=== PATIENT | female | born 1990 | race Caucasian/White ===

== ENCOUNTER 2023-06-28 11:13 | Outpatient (RCR) | payer OTHER, SELFPAY ==
[2023-06-28 13:20] LABS: Hematocrit 36.9 % (37.0-47.0); Hemoglobin 11.8 g/dL (12.0-15.0)
[2023-06-28 13:35] LABS: Glucose 1 Hour PP 50gm Dose 149 mg/dL
[2023-06-28 14:15] LABS: HIV 1/2 Ab P24 Ag Result Negative (Negative)
[2023-06-29] MEDS: RHO(D) IMMUNE GLOBULIN 300 MCG/2 ML SYRINGE IM (14:57)
== END 2023-09-26 23:59 | disposition home or self-care (01) ==
LOC: ANHLAB 11:13
PROVIDERS: PCP Internal Medicine Geriatric Medicine; Visit Provider Advanced Practice Midwife
DX: Z11.4 Encounter for screening for human immunodeficiency virus [HIV] (principal); Z29.13 Encounter for prophylactic Rho(D) immune globulin; O36.0130 Maternal care for anti-D [Rh] antibodies, third trimester, not applicable or unspecified; Z3A.00 Weeks of gestation of pregnancy not specified
CPT/HCPCS: 36415; 82947; 85014; 85018; 85461; 86703; 86850; 86900; 86901; 90384; 96372; G0432; J2790

== ENCOUNTER 2023-09-01 05:01 | Inpatient (IN) | payer OTHER, SELFPAY ==
--- NOTE | 2023-08-31 15:28 | PC.NURSE ---
08/31/2023 1500 Spoke with Michelle on the phone and reviewed ERAS with pt and instructed on arrival. Discussed arriving at 0500 to get her labs completed in L&D. Reviewed nothing to eat after midnight and to have 12 ounces of clear liquid (no red) 3 hours before Nothing further 2 1/2 hours prior to surgery Enc to phone unit with any further questions or concerns Pt v/u
[2023-09-01] VITALS (57 sets, daily range): BP systolic 87–222; BP diastolic 40–186; PULSE 51–271; RESP 13–20; TEMP 36.2–37.2; O2SAT 97–100; BMI 26.9
[2023-09-01 05:45] LABS: Basophils Percent Auto 0.4 % (0.2-1.2); Eosinophils Percent Auto 0.4 % (0-4.4); Hematocrit 37.3 % (37.0-47.0); Hemoglobin 12.3 g/dL (12.0-15.0); Immature Granulocyte Absolute 0.03 K/mm3 (0.00-0.031); Immature Granulocyte Percent A 0.4 % (0-0.5); Lymphocytes Absolute Auto 2.08 K/mm3 (0.9-3.2); Lymphocytes Percent Auto 26.4 % (18.3-44.2); Mean Corpuscular Hemoglobin 28.2 pg (26-34); Mean Corpuscular Volume 85.6 fl (80-100); Mean Platelet Volume 12.3 fl (7.4-10.4); Monocytes Absolute Auto 0.5 K/mm3 (0.1-0.6); Monocytes Percent Auto 6.4 % (2.6-8.5); Neutrophils Absolute Auto 5.2 K/mm3 (1.3-6.7); Platelet Count Result 139 k/mm3 (150-375); Red Blood Count 4.36 M/mm3 (4.2-5.4); Red Cell Distribution Width 13.5 % (11.5-14.5); White Blood Count 7.9 K/mm3 (4.5-10.0)
[2023-09-01] MEDS: ACETAMINOPHEN 500 MG TABLET 1000 MG PO (05:56)
[2023-09-01 05:59] LABS: Glucose Point of Care 87 mg/dl (65-105)
[2023-09-01] MEDS: LACTATED RINGERS 1,000 ML 125 ML IV CONT ×3 (06:32→08:55)
[2023-09-01 06:34] LABS: HIV 1/2 Ab P24 Ag Result Negative (Negative)
--- NOTE | 2023-09-01 06:36 | LDADM ---
This patient, Cara Blackman, was admitted to Labor/Delivery/Recovery 120 on 09/01/23 at 05:01. Plans for labor, pain management and were discussed with patient. Patient/family oriented to hospital policies and general routines including ID bracelet, bed and alarms, visiting hours, pain management, procedures, bathroom and other care routines, personal items, smoking policy, room service/diet and guest tray routines, infant security routines, and visiting hours. Patient/Family are encouraged to report perceived risks to care and to ask questions if they do not understand what they are told or what they should do. See OBIX for further documentation.
--- NOTE | 2023-09-01 07:10 | WPDANESEPPF ---
Anes - Initial Pre Proc Eval Procedure: Operation Date: 09/01/23 07:30 Proposed Procedures p Section - Abhilash Asencio MD Date/Time: 09/01/23 07:10 Surgeon: Corey Kasper MD Pre Op Diagnosis: C/S Patient Data Age: 33 Gender: F Height: 1.65 m Weight: 73.5 kg Last Vital Signs Pulse 80 09/01/23 06:30 BP 105/70 09/01/23 06:30 Pulse Ox 100 09/01/23 06:40 O2 Del Method Room Air 09/01/23 06:34 Allergies Allergy/AdvReac Type Severity Reaction Status Date / Time No Known Allergies Allergy Verified 09/01/23 06:33 Home Medications Medication Instructions Recorded Confirmed Type prenat.vits,fabi,lhr-kgsb-epddj 1 tablet 08/18/23 History Laboratory Tests 09/01/23 09/01/23 05:11 05:54 WBC 7.9 K/mm3 (4.5-10.0) RBC 4.36 M/mm3 (4.2-5.4) Hgb 12.3 g/dL (12.0-15.0) Hct 37.3 % (37.0-47.0) MCV 85.6 fl (80-100) MCH 28.2 pg (26-34) MCHC 33.0 g/dl (32-36) RDW 13.5 % (11.5-14.5) Plt Count 139 L k/mm3 (150-375) MPV 12.3 H fl (7.4-10.4) Immature Gran % (Auto) 0.4 % (0-0.5) Neut % (Auto) 66.0 % (45.5-73.1) Lymph % (Auto) 26.4 % (18.3-44.2) [place] % (Auto) 6.4 % (2.6-8.5) Eos % (Auto) 0.4 % (0-4.4) Baso % (Auto) 0.4 % (0.2-1.2) Lymph # (Auto) 2.08 K/mm3 (0.9-3.2) [place] # (Auto) 0.5 K/mm3 (0.1-0.6) Eos # (Auto) 0.0 K/mm3 (0-0.3) Baso # (Auto) 0.0 K/mm3 (0.0-0.1) Abs Immat Gran (auto) 0.03 K/mm3 (0.00-0.031) Absolute Neuts (auto) 5.2 K/mm3 (1.3-6.7) Absolute Nucleated RBC 0.000 K/mm3 (0.0-0.012) Nucleated RBC % 0.0 % (0.0-0.2) POC Capillary Glucose 87 mg/dl (65-105) RPR Pending HIV 1&2 Ab/P24 Ag 4thGn Negative (Negative) Blood Type O Negative Antibody Screen Positive Antibody Identification Pending Antigen Identification Pending VAMSI, IgG Interpret Pending VAMSI, Poly Interpret Pending VAMSI, Complement Interp Pending Patient hx anesthesia problems: none Family hx anesthesia problems: none Results Review: All pre-operative results and documents have been reviewed as part of the pre-operative evaluation. [facility] Past Medical History Medical History (Updated 09/01/23 @ 07:11 by Bruno De Los Santos MD) Gestational diabetes Surgical History Surgical History (Updated 09/01/23 @ 07:11 by Bruno De Los Santos MD) H/O colonoscopy Family History Family History Other Patient denies significant medical history Social History Social History Smoking status: Never smoker Substance use: never Do You Feel Safe in your Home?: Yes Lack of Transportation: No Lack of Food: Never True Current Housing: I Have Housing Concerned About Future Housing: No Difficulty Paying Gas/Electric Bills: No Difficulty Paying for Meds: No Currently Unemployed: No Education: Master's Degree or Higher Difficulty w/ Childcare or Family Care: No Spiritual care concerns: No Anes - Eval Final PreProcedure Day of Procedure 09/01/23 07:10 Patient weight: normal Heart: regular rate and rhythm Lungs: clear to auscultation Airway: Mallampati scale class 1 Neurological: alert and oriented Last oral intake: >/= 8 hours ASA classification: II Emergent: no Anesthetic plan: proceed Anesthesia type and monitoring: regional spinal and standard monitoring Results Review: All pre-operative results and documents have been reviewed as part of the pre-operative evaluation. Informed Consent: The patient's anesthetic plan and its attendant risks and benefits were discussed with the patient/family/POA. Questions were solicited and answers provided to the satisfaction of the patient/family/PO
--- NOTE | 2023-09-01 07:15 | PM.IMHP ---
H&P: HPI History of Present Illness Date/Time: 09/01/23 07:15 Chief Complaint: pt is here for a primary section, for breech presentation. has been complicated by diet controlled gestational diabetes. pt currently has no complaints, no significant surgical history Review of Systems Review of Systems: All systems reviewed & are unremarkable except as noted in HPI and below PMFSH Past Medical History Medical History (Updated 09/01/23 @ 07:20 by Myra Leija CNM) Gestational diabetes Surgical History Surgical History (Updated 09/01/23 @ 07:11 by Bruno De Los Santos MD) H/O colonoscopy Family History Family History Other Patient denies significant medical history Social History Social History Smoking status: Never smoker Substance use: never Do You Feel Safe in your Home?: Yes Lack of Transportation: No Lack of Food: Never True Current Housing: I Have Housing Concerned About Future Housing: No Difficulty Paying Gas/Electric Bills: No Difficulty Paying for Meds: No Currently Unemployed: No Education: Master's Degree or Higher Difficulty w/ Childcare or Family Care: No Spiritual care concerns: No Meds Home Medications and Allergies Home Medications Medication Instructions Recorded Confirmed Type prenat.vits,fabi,ltw-geys-yjutz 1 tablet 08/18/23 History Allergies Allergy/AdvReac Type Severity Reaction Status Date / Time No Known Allergies Allergy Verified 09/01/23 06:33 Vital Signs Vital Signs - 24 hr 09/01/23 05:55 09/01/23 06:00 09/01/23 06:05 Pulse Rate Blood Pressure Pulse Oximetry 100 100 100 Oxygen Delivery 09/01/23 06:09 09/01/23 06:10 09/01/23 06:15 Pulse Rate 78 81 Blood Pressure 92/61 L 87/58 L Pulse Oximetry 100 100 Oxygen Delivery 09/01/23 06:20 09/01/23 06:25 09/01/23 06:30 Pulse Rate 80 Blood Pressure 105/70 Pulse Oximetry 100 100 100 Oxygen Delivery 09/01/23 06:35 09/01/23 06:40 09/01/23 06:34 Pulse Rate Blood Pressure Pulse Oximetry 100 100 Oxygen Delivery Room Air Exam Narrative: Bedside US confirmed fetus in breech position Const: General: cooperative Nutritional Appearance: average body habitus Eyes: General: appearance normal, both eyes and all related structures Neck: Neck: normal visual inspection Chest: Chest palpation & inspection: normal inspection of the chest Resp: Effort & Inspection: normal respiratory effort Auscultation: clear to auscultation bilaterally Cardio: Rate: regular rate Rhythm: regular rhythm GI: Inspection: normal to inspection Other: soft gravid : Other: deferred Back/Spine/Pelvis: Back: no CVA tenderness Skin: General skin exam: normal color and no rashes or lesions noted Neuro: General: patient oriented x3 Speech: normal speech Extrem: General: normal to inspection Right lower extremity: normal to inspection Left lower extremity: normal to inspection Psych: Appearance: grossly normal Mental Status: mental status grossly normal Affect: normal affect H&P: Results Labs Labs: Short CBC 09/01/23 Range/Units 05:11 WBC 7.9 (4.5-10.0) K/mm3 Hgb 12.3 (12.0-15.0) g/dL Hct 37.3 (37.0-47.0) % Plt Count 139 L (150-375) k/mm3 Assessment and Plan Assessment and plan (1) delivery indicated due to breech presentation: Code(s): O32.1XX0 - Maternal care for breech presentation, not applicable or unspecified Status: Acute Plan at 39 weeks gestation primary section for breech presentation, discussed risks and benefits of section, consents signed dr. chen to preform section
[2023-09-01] MEDS: FAMOTIDINE 20 MG/2 ML VIAL IV PUSH (07:26)
[2023-09-01] MEDS: ONDANSETRON INJ 4 MG/2 ML VIAL IV PUSH (07:26)
[2023-09-01] MEDS: ceFAZolin 2 GM/D5W 50 ML 2 GM/50 ML BAG IVPB (08:05)
--- NOTE | 2023-09-01 09:35 | PC.NURSE ---
heart tones obtained in OR after spinal placement. FHT 125 at 0814. Proceeded to prep patient routinely.
[2023-09-01] MEDS: OXYTOCIN 30 UNITS/NS 500 ML 30 UNITS/500 ML BAG 125 UNITS IV CONT (10:32)
--- NOTE | 2023-09-01 11:13 | OBPPTRN ---
Patient transferred to post room #291 via stretcher. Support person present. Oriented to unit, room, information board, rooming in, admission packet and security measures. Patient verbalizes understanding.
[2023-09-01 11:21] LABS: Rapid Plasma Reagin Non-Reactive (NonReactive)
--- NOTE | 2023-09-01 11:50 | PC.NURSE ---
Consulted with patient to assess needs related to . Discussed with mother her successes, concerns and any questions she has. We reviewed working with the , supporting breast, protecting her nipples with an optimal deep latch, good positioning. Encouraged understanding the benefits of skin to skin, responding to feeding cues, frequencies of feeding 8-12 times in 24 hours (approximately 2-3 hours), duration of feedings, milk production, intake/output feeding sheet and signs of adequate intake encouraging swallowing at the breast. Reviewed positioning and alignment, supporting breast, off-centered (asymmetrical latch) and leading with the chin with big, open, wide gape. We struggled to latch the to the right breast in a cradle hold. Infant was off and on and did not maintain a latch. latched optimally to the [left] breast in [football] position. fed for 10 minutes with some stimulation and spontaneous swallows, then pulled off the breast and slept. Education given to the mother of how to visualize the suckling (with good rocking jaw motion) swallows (dropping of the lower jaw) and how to listen for drinking at the breast (the ka sound). The infant was [able] to maintain latch without discomfort to mother. Nipple care reviewed with optimal latch, good positioning and working to maintain the latch. Her nipples are sore after her first feeding. Mother voiced understanding of the education shared, to call for assistance if the infant does not latch or if there is discomfort with . Reported to the Primary RN.
--- NOTE | 2023-09-01 12:14 | WPDANLDNPN2 ---
Anes-Prog Note L&D-Neuraxial Date/Time: 09/01/23 12:14 Patient feedback: Patient satisfied with post-operative pain management.
--- NOTE | 2023-09-01 12:14 | WPDANLDPN2 ---
Anes-Prog Note L&D Date/Time: 09/01/23 12:14 Neuro status: Neuro function grossly intact. Cardiovascular status: normal Respiratory status: normal Airway patency: baseline Mental status: baseline Post-Op hydration status: normal Vital Signs: Last Vital Signs Temp 36.2 C L 09/01/23 09:02 Pulse 169 H 09/01/23 11:05 Resp 15 09/01/23 10:45 BP 96/64 L 09/01/23 11:05 Pulse Ox 100 09/01/23 11:07 O2 Del Method Room Air 09/01/23 11:20 Pain score (VAS): 0 I/O: Intake & Output 08/31/23 09/01/23 09/01/23 23:59 07:59 15:59 Intake Total 1000 1000 Output Total 1815 Balance 1000 -815 Post-procedural complaints: none Patient feedback: Patient satisfied with anesthetic care.
[2023-09-01] MEDS: KETOROLAC 15 MG/ML VIAL (*BKC) IV PUSH ×2 (12:32→20:01)
[2023-09-01] MEDS: DEXTROSE 5%/0.45% SOD CHL 1,000 ML 125 ML IV CONT (14:37)
[2023-09-01] MEDS: ACETAMINOPHEN 325 MG TABLET 650 MG PO ×2 (15:32→20:01)
--- NOTE | 2023-09-01 15:45 | PC.NURSE ---
Mother called out for feeding assistance. Baby had a low blood sugar and was supplemented with glucose gel and formula per the hypoglycemia protocol. Infant was still giving some feeding cues and mother wanted to put her to breast. We attempted in football hold and infant opened and tried to latch a few times, but did not feed. Mother educated about feeding at 2 hours to support a good blood sugars. Baby had a dirty diaper and she was awake again, so we placed her back at the breast, but she was asleep and did not attempt to latch again. Discussed need to pump if there is further need for supplementation due to glucose issues. Encouraged mother to do some skin to skin and call out for assistance at the next feeding or with infant feeding cues. Mother agrees with this plan.
[2023-09-01] MEDS: SIMETHICONE 80 MG TAB.CHEW PO (16:25)
[2023-09-01] MEDS: LIDOCAINE 5% PATCH 1 PATCH TRANSDERM (16:25)
--- NOTE | 2023-09-01 17:50 | PC.NURSE ---
Primary RN said patient was attempting to breastfeed. was in mom's arms sleeping, and mom said she had latched consistently for 8-10 minutes on the left breast and 5 minutes on the right. Mom felt confident and independently completed the feeding. We discussed how to know infant is getting enough, listening for swallows, weight, jaundice and output requirements and yellow seedy stools by day 7. Encouraged patient to ask her nurses for assistance with feeding tonight and this weekend since there is not coverage. Advised patient to call the Services phone number after discharge for questions or appointments. Mother and father receptive to information shared and verbalized understanding. Reported to primary RN.
[2023-09-02] VITALS (10 sets, daily range): BP systolic 99–117; BP diastolic 60–75; PULSE 68–86; RESP 16–18; TEMP 36.7–37.6; O2SAT 97–98
[2023-09-02] MEDS: KETOROLAC 15 MG/ML VIAL (*BKC) IV PUSH (02:44)
[2023-09-02] MEDS: ACETAMINOPHEN 325 MG TABLET 650 MG PO ×4 (02:45→21:09)
[2023-09-02 06:06] LABS: Basophils Percent Auto 0.2 % (0.2-1.2); Eosinophils Percent Auto 0.2 % (0-4.4); Hematocrit 25.3 % (37.0-47.0); Immature Granulocyte Absolute 0.04 K/mm3 (0.00-0.031); Immature Granulocyte Percent A 0.4 % (0-0.5); Lymphocytes Percent Auto 12.8 % (18.3-44.2); Mean Corpuscular HGB Conc 31.6 g/dl (32-36); Mean Corpuscular Volume 88.5 fl (80-100); Mean Platelet Volume 12.9 fl (7.4-10.4); Monocytes Absolute Auto 0.6 K/mm3 (0.1-0.6); Monocytes Percent Auto 6.1 % (2.6-8.5); Neutrophils Absolute Auto 8.2 K/mm3 (1.3-6.7); Neutrophils Percent Auto 80.3 % (45.5-73.1); Platelet Count Result 123 k/mm3 (150-375); Red Blood Count 2.86 M/mm3 (4.2-5.4); Red Cell Distribution Width 13.6 % (11.5-14.5); White Blood Count 10.2 K/mm3 (4.5-10.0)
[2023-09-02] MEDS: DOCUSATE SODIUM 100 MG CAPSULE PO ×2 (08:59→17:19)
[2023-09-02] MEDS: POLYSACCHARIDE IRON COMPLEX 150 MG CAPSULE PO (08:59)
[2023-09-02] MEDS: MULTIVIT/MIN/PREN/FOL AC/IRON TABLET 1 TAB PO (08:59)
[2023-09-02] MEDS: SIMETHICONE 80 MG TAB.CHEW PO ×3 (08:59→17:19)
--- NOTE | 2023-09-02 09:33 | P.PNOB_ITS ---
OB - PN: Subj Subjective Date/time seen: 09/02/23 09:33 Interval history: post op day 1 section for breech passing flatus/voiding without difficulty fatigued reviewed labs OB - PN: Obj Data Labs 09/02/23 04:43 Labs: Laboratory Results - last 24 hr 09/01/23 09/02/23 05:11 04:43 WBC 10.2 H RBC 2.86 L Hgb 8.0 L D Hct 25.3 L MCV 88.5 MCH 28.0 MCHC 31.6 L RDW 13.6 Plt Count 123 L MPV 12.9 H Immature Gran % (Auto) 0.4 Neut % (Auto) 80.3 H Lymph % (Auto) 12.8 L [place] % (Auto) 6.1 Eos % (Auto) 0.2 Baso % (Auto) 0.2 Lymph # (Auto) 1.30 [place] # (Auto) 0.6 Eos # (Auto) 0.0 Baso # (Auto) 0.0 Abs Immat Gran (auto) 0.04 H Absolute Neuts (auto) 8.2 H Absolute Nucleated RBC 0.000 Nucleated RBC % 0.0 RPR Non-reactive Antigen Identification Cancelled Crossmatch See Detail OB - PN A/P Plan day: 1 Comments: discussed blood loss from surgery and will plan blood today with rpt labs 4 hours post infusion, pt agrees to plan Time Spent With Patient Time: Total time spent is greater than 50% in coordination of care (as documented) at patient's floor/unit and/or counseling patient: Review of Systems Review of Systems: All systems reviewed & are unremarkable except as noted in HPI and below Exam Const: General: cooperative Resp: Effort & Inspection: normal respiratory effort Cardio: Rate: regular rate Rhythm: regular rhythm GI: Other: incision CDI Skin: General skin exam: normal color Neuro: General: patient oriented x3
--- NOTE | 2023-09-02 11:00 | PC.NURSE ---
Breast pump provided due to maternal request. Instructions given on cleaning, care, usage, that there should be no pain, pumping schedule for milk production, collection, and storage of human milk. Patient was assessed for correct placement, flange size, to pump for comfort and nipple stretching/stimulation for adequate milk production every 3 hours (8 times in 24 hours) 1-2 times at night.
[2023-09-02] MEDS: HYDROcodone/acetaminophen (*CRX) 5-325 MG TABLET 1 TAB PO (12:42)
[2023-09-02] MEDS: FAMOTIDINE 20 MG/2 ML VIAL IV PUSH (13:00)
[2023-09-02] MEDS: TUBING, BLOOD PLUM PUMP TUBING 1 EACH XX (14:15)
[2023-09-02] MEDS: SODIUM CHLORIDE 0.9% IV 250 ML 30 ML IV CONT (14:15)
--- NOTE | 2023-09-02 14:51 | WPDANLDPN2 ---
Anes-Prog Note L&D Date/Time: 09/02/23 14:51 Comfortable throughout: section Neuraxial method: spinal Epidural/Spinal procedure site: clean & non-tender Neuro status: Neuro function grossly intact. Cardiovascular status: normal Respiratory status: normal Airway patency: baseline Mental status: baseline Post-Op hydration status: normal Vital Signs: Last Vital Signs Temp 36.7 C 09/02/23 14:30 Pulse 80 09/02/23 14:30 Resp 16 09/02/23 14:30 BP 107/73 09/02/23 14:30 Pulse Ox 97 09/02/23 14:30 O2 Del Method Room Air 09/02/23 12:40 Pain score (VAS): 3/10 I/O: Intake & Output 09/01/23 09/02/23 09/02/23 23:59 07:59 15:59 Intake Total 800 300 400 Output Total 2350 500 750 Balance -1550 -200 -350 Post-procedural complaints: none Patient feedback: Patient satisfied with anesthetic care.
--- NOTE | 2023-09-02 14:52 | WPDANLDNPN2 ---
Anes-Prog Note L&D-Neuraxial Date/Time: 09/02/23 14:52 Neuraxial medications: intrathecal PF morphine Opiod-related complaints: pruritis (Patient states some itchiness but is starting to subside, no medications administered) Patient feedback: Patient satisfied with post-operative pain management.
[2023-09-02] MEDS: IBUPROFEN 600 MG TABLET PO ×2 (15:32→21:09)
[2023-09-02] MEDS: FERROUS SULFATE 325 MG TABLET DR PO (17:19)
[2023-09-02] MEDS: LIDOCAINE 5% PATCH 1 PATCH TRANSDERM (17:21)
[2023-09-02 21:26] LABS: Hematocrit 26.7 % (37.0-47.0); Hemoglobin 8.6 g/dL (12.0-15.0)
[2023-09-03] MEDS: ACETAMINOPHEN 325 MG TABLET 650 MG PO ×4 (02:49→21:20)
[2023-09-03] MEDS: IBUPROFEN 600 MG TABLET PO ×4 (02:49→21:20)
[2023-09-03 07:40] VITALS: BP 106/65; PULSE 74; RESP 18; TEMP 36.7; O2SAT 99
[2023-09-03] MEDS: SIMETHICONE 80 MG TAB.CHEW PO ×3 (08:41→17:38)
[2023-09-03] MEDS: FERROUS SULFATE 325 MG TABLET DR PO ×2 (08:41→17:38)
[2023-09-03] MEDS: MULTIVIT/MIN/PREN/FOL AC/IRON TABLET 1 TAB PO (08:41)
[2023-09-03] MEDS: DOCUSATE SODIUM 100 MG CAPSULE PO ×2 (08:41→17:38)
--- NOTE | 2023-09-03 08:51 | PM.OBPNVD ---
OB - PN: Subj Subjective Date/time seen: 09/03/23 08:51 Interval history: post op day 2 section for breech passing flatus/voiding without difficulty fatigued reviewed labs OB - PN: Obj Data Labs 09/02/23 21:17 Labs: Laboratory Results - last 24 hr 09/01/23 09/02/23 05:11 21:17 Hgb 8.6 L Hct 26.7 L Blood Type O Negative Antibody Screen Positive Antibody Identification Passive Due to RH Imm Glob Antigen Identification Cancelled VAMSI, IgG Interpret Negative VAMSI, Complement Interp Negative Enhanced Crossmatch See Detail OB - PN A/P Plan day: 2 Plan: routine care Time Spent With Patient Time: Total time spent is greater than 50% in coordination of care (as documented) at patient's floor/unit and/or counseling patient: Review of Systems Review of Systems: All systems reviewed & are unremarkable except as noted in HPI and below Exam Const: General: cooperative and healthy appearing Chest: Chest palpation & inspection: normal inspection of the chest Cardio: Rate: regular rate Rhythm: regular rhythm GI: Other: incision CDI
[2023-09-03 19:53] VITALS: BP 122/80; PULSE 77; RESP 20; TEMP 36.7; O2SAT 98
[2023-09-03] MEDS: LIDOCAINE 5% PATCH 1 PATCH TRANSDERM (21:20)
[2023-09-04] MEDS: ACETAMINOPHEN 325 MG TABLET 650 MG PO ×2 (05:28→12:58)
[2023-09-04] MEDS: IBUPROFEN 600 MG TABLET PO ×2 (05:28→12:59)
[2023-09-04 07:40] VITALS: BP 107/69; PULSE 81; RESP 16; TEMP 36.6; O2SAT 100
[2023-09-04] MEDS: DOCUSATE SODIUM 100 MG CAPSULE PO (08:53)
[2023-09-04] MEDS: SIMETHICONE 80 MG TAB.CHEW PO (08:53)
[2023-09-04] MEDS: MULTIVIT/MIN/PREN/FOL AC/IRON TABLET 1 TAB PO (08:53)
[2023-09-04] MEDS: FERROUS SULFATE 325 MG TABLET DR PO (08:53)
[2023-09-04] MEDS: MEASLES,MUMPS,RUBELLA VACCINE 0.5 ML VIAL SUB-Q (08:54)
--- NOTE | 2023-09-04 09:13 | PM.OBPNVD ---
OB - PN: Subj Subjective Date/time seen: 09/04/23 09:13 Interval history: post op day 3 section for breech passing flatus/voiding without difficulty fatigued reviewed labs OB - PN: Obj Data Labs 09/02/23 21:17 OB - PN A/P Plan day: 3 Plan: routine care and discharge home Time Spent With Patient Time: Total time spent is greater than 50% in coordination of care (as documented) at patient's floor/unit and/or counseling patient: Review of Systems Review of Systems: All systems reviewed & are unremarkable except as noted in HPI and below Exam Const: General: cooperative and healthy appearing Resp: Effort & Inspection: normal respiratory effort Cardio: Rate: regular rate Rhythm: regular rhythm GI: Other: incision CDI
[2023-09-05 14:59] VITALS: BP 112/79; PULSE 79; RESP 18; TEMP 37.2; O2SAT 100
--- NOTE | 2023-09-05 15:15 | PC.NURSE ---
Called by follow up RN to assist patient with . Mother led the conversation with her the?experience so far. Mom's breast are feeling full and leaking milk. Mother is feeling overwhelmed by nighttime feeds and struggling to latch, especially at night. Discussed night can be a more challenging time for many and encouraged lots of frequent feeds during the day. Encouraged understanding of the benefits of skin to skin to calm and settle infant prior to attempting feeds if is frantic or not easily consoled, how to watch for early feeding cues, responsive feeding, feeding on demand (aiming for 8-12 times in 24 hours, about every 2-3 hours), milk production, building/maintaining a milk supply, duration of feeding, signs of adequate intake/output. We also discussed pumping and/or using a device to catch leaking breast milk from the other breast when she is feeding. This milk could be stored and used for a night time feeding with dad so mom can sleep. If needed, mother may try a pacifier. We discussed not using the pacifier as a replacement for feeds when infant is showing hunger cues, but more as a tool to help infant calm and mom rest. Mother works well with her with encouragement and education. Reviewed positioning and ear, shoulder, hip alignment, supporting the breast to facilitate a deep latch, asymmetrical latch (off-center), leading with the chin with a big, open, wide gape and body close to mother. latched optimally to the [left] breast in [cradle, then cross cradle] position. Encouraged mother to begin the feeding in cross cradle for more control of baby's head and a better 'bite' with the C hold. Education given to the mother of how to visualize the suckling (with good rocking jaw motion), swallows (dropping of the lower jaw) and how to listen for drinking at the breast (the ka sound). Infant was [able] to maintain latch without pain to mother protecting the nipple with optimal positioning and latching. Reviewed comfort measures of healing nipples by leaving open to air-dry, mother is also using silverettes. She states she feels her nipple soreness has improved. We discussed infant stool transition (already yellow and seedy) and gassy/fussy baby when milk transitions. Reviewed outpatient resources here at [place]. Parents voiced understanding of information, demonstrated learning and will call if there is a request for assistance. Mother verbalized that this meeting was very helpful and she felt a lot better about .
--- NOTE | 2023-09-05 16:28 | PM.OBDSVD ---
DS: Admitting Diagnosis Discharge Date 09/04/23 Admitting Diagnosis breech OB - DS: Summary OB Procedures : None OB Procedures Intrapartum: low cervical, transverse OB Procedures: : Transfusion Peripartum Data Procedures: Procedures Operation Date: 09/01/23 07:30 Actual Procedure Side Surgeon p Section Not Applicable Abhilash Asencio MD Time Spent with Patient Time attestation: Total time spent providing and/or coordinating discharge services: Discharge Plan Discharge Attending physician on discharge: Abhilash Asencio Consulting providers: Myra Leija; Bruno De Los Santos; Marina Campos; Katarina Celis; Abhilash Asencio Discharging Clinician: Myra Leija Patient Disposition: Home, Self-Care Activity: pelvic rest Diet: regular Discharge Instructions: Education: Mom and Baby Guide Given to: Follow-Up: Call your delivering provider's office for an appointment to be seen in: 1 and 6 weeks Mom and baby should come to the [facility] for the follow-up appointment. Appointment Date/Time: 09/05/2023 at 2:30 pm Call [phone] if you are unable to keep your appointment time. BREAST CARE: * Wear a snug supportive bra. * For engorgement discomfort: Breast Feeding: * Apply warm moist washcloths * Express milk as needed to relieve engorgement * Wear loose clothing Bottle Feeding: * May apply ice packs * For sore nipples: * Identify correct latch-on * Apply warm moist washcloths before and after nursing * Air dry nipples after nursing * May apply Lansinoh cream to nipples ABDOMINAL INCISION: (if applicable) * Allow incision to air dry * Do NOT use lotions for powders on your incision * When showering, allow soap and water to run over the incision, but do not wash incision PERINEAL CARE: * Until bleeding stops, use your se bottle after urinating * Change your pad frequently throughout the day * You may take sitz baths several times a day (fill your bathtub with warm water and soak for 20 minutes.) Do NOT bathe in the water * No tub baths until seen by your physician - You may shower ACTIVITY: * Rest as much as possible. * Do not exercise or lift anything heavier than your baby (such as laundry or other children.) * Avoid stairs or driving as much as possible. * Do not put anything into the vagina. No douching, tampons, or sexual activity until seen by physician. NOTIFY PHYSICIAN IF YOU HAVE ANY QUESTIONS OR IF ANY OF THE FOLLOWING SYMPTOMS OCCUR: * If your episiotomy or incision becomes red, swollen, or more painful than what you have experienced in the hospital. * If your vaginal bleeding becomes foul smelling. * If your vaginal bleeding becomes more heavy than a period or if your bleeding changes from pink to bright red. However, you may pass an occasional walnut-sized clot once or twice for the first week . * If you experience a sharp, shooting pain in you calves. * If you discover a hard, reddened area on your breast or if you experience flu-like symptoms. DIET: * Eat regular, well-balanced meals. * Drink plenty of fluids daily. If , drink to thirst. Follow-up/Referrals: Abhilash Asencio MD [Physician] - 1 Week Discharge Medications: New hydrocodone-acetaminophen 5-325 mg Tablet 1 tablet PO Q3H PRN (Reason: Breakthrough Pain Rated 4-6) Qty: 25 0RF ibuprofen 600 mg Tablet 600 mg PO Q6H Qty: 30 0RF ferrous sulfate 325 mg (65 mg iron) Tablet,Delayed Release (Dr/Ec) 325 mg PO BID Qty: 60 0RF Continued prenat.vits,fabi,arg-cbst-oraxj Tablet 1 tablet Date of admission: 09/01/23 05:01 Primary Care Provider: GianAnila Admitting Provider: Corey Kasper Attending physician on admission: Corey Kasper Condition: Stable
--- NOTE | 2023-09-06 16:57 | P.PCNOB_ITS ---
OB - Delivery Note Procedure Delivery date: 09/06/23 Pre-op diagnosis: Breech Presentation Post-op Diagnosis: Same Induction method: None Delivery monitor: External FHT Prior to decision for section, ACOG/SMFM labor guidelines were considered and discussed with the patient and staff. Decision made to proceed with the section.: Yes Procedure Performed: Repeat Surgeon: Abhilash Asencio MD Anesthesia type: Spinal Description of Procedure/Findings: The patient was taken to the operating room where she was placed in the dorsal supine position with a leftward tilt. The electronic monitor was placed and heart rate was found to be reassuring. She was prepped and draped in the normal sterile fashion, and anesthesia was checked to be adequate. A Pfannensteil skin incision was made with the scalpel and carried through to the underlying layer of fascia with the scalpel. The fascia was incised in the midline and the incision extended laterally with the Otto scissors. The superior aspect of the fascial incision was then grasped with Nash clamps, elevated, and the underlying rectus muscles dissected off bluntly and with Otto scissors. Attention was then turned to the inferior aspect of the fascial incision, which in similar fashion was grasped, elevated, and the rectus muscles dissected off.? The rectus muscles were then in the midline, and the peritoneum entered using two Peans and Metzenbaum scissors. The peritoneal incision was extended superiorly and inferiorly with good visualization of the bladder. With the bladder blade providing retraction and visualization, the lower uterine segment was incised in a transverse fashion with the scalpel. The uterine incision was then extended laterally. The bladder blade was removed and the 's breech was elevated and delivered atraumatically. The remainder of the was then delivered without difficulty, and the infant's nose and mouth were suctioned with the bulb suction. The umbilical cord was doubly clamped and cut. The was then handed off to the waiting nursing staff. Specimens then obtained as listed below. The placenta was then removed manually and the uterus was exteriorized and cleared of all clots and debris. The uterine incision was repaired with 0- Monocryl in a running, interlocked fashion. The posterior cul-de-sac was manually cleared of all clots and debris. The uterus was returned to the abdomen. The gutters were then manually cleared of all clots and debris.? The uterine incision was visualized to be hemostatic. The fascia was reapproximated with 0-Vicryl in a running fashion. The subcutaneous tissues were irrigated with warmed normal saline, and hemostasis was assured. The skin was closed with 4-0 monocryl in a running subcuticular stitch. Fundal pressure was applied to express remaining intrauterine clots and debris. The patient tolerated the procedure well. Sponge, lap, and needle counts were correct times three per nursing. The patient was taken to the recovery room in stable condition. Complications: No immediate complications Condition: Stable Disposition: Floor Baby Date of : 09[birth year]23 Weeks of gestation at delivery: 39 Infant gender: Female presentation: breech Placenta delivery description: Expressed
== END 2023-09-04 15:10 | disposition home or self-care (01) | DRG 788 ==
LOC: ANHLDR 05:06 → ANHOB2 11:14
PROVIDERS: Advanced Practice Midwife; Obstetrics & Gynecology; Admitting Provider Obstetrics & Gynecology; PCP Internal Medicine Geriatric Medicine; Visit Provider Obstetrics & Gynecology
PROC: 10D00Z1 Extraction of Products of Conception, Low, Open Approach (ICD-10-PCS; CPT 59514; principal; 2023-09-01 07:30)
DX: O32.1XX0 Maternal care for breech presentation, not applicable or unspecified (principal); Z37.0 Single live birth; Z3A.39 39 weeks gestation of pregnancy; O24.420 Gestational diabetes mellitus in childbirth, diet controlled
CPT/HCPCS: 36415; 36430; 82948; 85014; 85018; 85025; 86592; 86703; 86850; 86880; 86900; 86901; 86902; 86922; 90710; A9270; G0432; J0690; J1885; J2274; J2405; J2590; J7050; J7120; P9016

== ENCOUNTER 2024-05-12 17:19 | Emergency (ER) | payer OTHER, SELFPAY ==
--- OUTSIDE RECORDS SUMMARY | 2024-05-12 17:21 | XMS_ITS | Data Portability ---
Author Organization [facility] [place] Address [address] [place] [address] [place] [address] Care Team Providers Care Roll Hand Name Role Phone MARLENE LAKE Primary Care Provider [phone] Assessment Encounter Date Assessment Date Assessment LastModified by Organization Details LastModified Time 04/10/2024 04/10/2024 Annual gynecological exam performed. Patient will come back in a year unless there are new symptoms. Suggest Calcium with Vitamin D if not eating in diet. Patient advised to get annual flu shot. Recommend yearly physicals and preform monthly breast exams. Genetic testing is available for patients with family history of cancer. Engage in safe sexual practices, use condoms. Encouraged to have daily exercise. Avoid tobacco and illicit drugs, moderation of alcohol. If BMI greater than 25 dietary consult advised. If you have any questions please call or email. pap collected f/u one year Not available 04/10/2024 16:55:02 Plan of Treatment Reminders Order Date Submit Date Provider Last Modified By Organization Details Last Modified Time Details Appointments None recorded. Lab urinalysis, dipstick 2024 025 [email or web address] [place], [address], [place], [address], 17:00:16 culture, urine 2024 025 [facility] (Lab), [address], [place], [address], 10:10:19 Referral urologist referral 2024 025 [facility], [address], [address], [place], [address], 5 04:03:20 Procedures None recorded. Surgeries None recorded. Imaging US, breast, bilateral, w/ axilla - left breast lump, axillary lumps come and go 2024 025 [email or web address] 1 [facility], [address], [place], [address], 5 16:06:56 Medication Orders nitrofurant oin monohydrate /macrocryst als 100 mg capsule 2024 025 [id number], [address], [place], [address], 5 16:28:05 dicloxacill in 500 mg capsule 2023 024 [email or web address] [facility] [address] In [facility], [address], [place], [address], 5 16:34:29 Patient TargetsNo targets recorded. Patient InstructionsNo instructions recorded. Reason for Referral Urologist Referral for Urina ry symptoms Referring Physician: Elaina Velez, Gynecology, Encounter Date: 02/22/2024 Results Created Date Observation Date Name Description Value Unit Range Abnormal Flag Note LastModifiedBy Organization Detail LastModifiedTime 08/18/19 24 08/18/2023 CULTU RE: GROUP B STREP SCREE N result report SEE RESULT S BELOW Test: Cultu re: Group B Strep Scree n - Vagin al/Re ctal Speci men Sourc e: Vagin a/Rec dianne Speci men Type: Vagin al/Re ctal Speci men Date: 1349 Resul t Date: 1413 Resul t Statu s: Final resul t Abnor mal: No Resul ting Lab: [facility] [address] [facility] [address] Tel: CULTU RE ----- ----- ----- --- No Group B strep isola pennie at 2 days (vero ctive broth juanan jonna t) Not Available [facility] (Lab) [address], [place], [address], 08/21/2023 15:16:29 02/21/19 25 02/22/2024 CULTU RE: URINE result report SEE RESULT S BELOW abnormal Test: Cultu re: Urine Speci men Sourc e: Urine - Clean Catch Speci men Type: Urine Speci men Date: 025 1654 Resul t Date: 2024 0906 Resul t Statu s: Final resul t Ryanor mal: Yes Casper gongora Lab: [facility] [address] [facility] [address] Tel: CULTU RE ----- ----- ----- --- 50,00 0-75, 000 CFU/m l Esche jaida a coli (Abno rmal) SUSCE PTIBI LITY ----- ----- ----- --- Esche jaida a coli METHO D JACINDA ----- ----- ----- ----- ----- ---- ----- ----- ----- ----- ----- AMPIC ILLIN <=8 ug/mL Susce ptibl e AMPIC ILLIN /SULB ACTAM <=8 ug/mL Susce ptibl e AZTRE ONAM <=4 ug/mL Susce ptibl e CEFAZ PEPE <=2 ug/mL Susce ptibl e CEFEP BA <=2 ug/mL Susce ptibl e CEFTA ZIDIM E <=1 ug/mL Susce ptibl e CEFTR IAXON E <=1 ug/mL Susce ptibl e CIPRO FLOXA MARK <=0.2 5 ug/mL Susce ptibl e GENTA MICIN <=2 ug/mL Susce ptibl e LEVOF LOXAC IN <=0.5 ug/mL Susce ptibl e MEROP ENEM <=1 ug/mL Susce ptibl e NITRO FURAN TOIN <=32 ug/mL Susce ptibl e PIPER ACILL IN/TA ZOBAC TOLEDO <=8 ug/mL Susce ptibl e TOBRA MYCIN <=2 ug/mL Susce ptibl e TRIME THOPR IM/SALMERON LFAME THOXA ZOLE >2 ug/mL Resis tant Not Available [facility] (Lab) [address], [place], [address], 02/25/2024 10:10:19 02/21/19 25 02/22/2024 urina lysis , dipst ick Leukocytes ++ Not Available [facility] [address], [place], [address], 02/22/2024 16:45:02 02/21/19 25 02/22/2024 urina lysis , dipst ick Nitrite - Not Available [place] [address], [place], [address], 02/22/2024 16:45:02 02/21/19 25 02/22/2024 urina lysis , dipst ick Urobilinogen - Not Available [facility] gretel [address], [place], [address], 02/22/2024 16:45:02 02/21/19 25 02/22/2024 urina lysis , dipst ick Protein trace Not Available [place] [address], [place], [address], 02/22/2024 16:45:02 02/21/19 25 02/22/2024 urina lysis , dipst ick pH 8 Not Available [place] [address], [place], [address], 02/22/2024 16:45:02 02/21/19 25 02/22/2024 urina lysis , dipst ick Blood ++ Not Available [place] [address], [place], [address], 02/22/2024 16:45:02 02/21/19 25 02/22/2024 urina lysis , dipst ick Specific [place] 1.000 Not Available [facility] rohan [address], [place], [address], 02/22/2024 16:45:02 02/21/19 25 02/22/2024 urina lysis , dipst ick Ketone - Not Available [place] [address], [place], [address], 02/22/2024 16:45:02 02/21/19 25 02/22/2024 urina lysis , dipst ick Bilirubin - Not Available [facility] derick [address], [place], [address], 02/22/2024 16:45:02 02/21/19 25 02/22/2024 urina lysis , dipst ick Glucose - Not Available [place] [address], [place], [address], 02/22/2024 16:45:02 02/21/19 25 02/22/2024 urina lysis , dipst ick Appearance cloudy Not Available [facility] [address], [place], [address], 02/22/2024 16:45:02 02/21/19 25 02/22/2024 urina lysis , dipst ick Color light yellow Not Available [place] [address], [place], [address], 02/22/2024 16:45:02 04/10/19 25 04/10/2024 IMAGE GUIDE D PAP AND HPV REGAR DLESS image guided Pap, HPV regardless of Pap result SEE RESULT S BELOW CASE REPOR T: Cytol ogy Gynec ologi christiano Repor t Case: [id number] Autho albert berta Provi evan: Myra [place], MYCHAL Corbett cted: 04/10 1735 Order ing Locat ion: [place] Patho logchad Recei garcia: 04/11 0843 First Scree n: [place] ret, CT Speci men: Timothy sosa Pap - Image d, Cervi x STATE MENT OF ADEQU ACY: Satis facto ry for evalu ation Trans forma tion zone compo nent prese nt ----- ----- ----- ----- ----- ----- ----- ----- ----- ----- ----- ----- ----- ----- ----- ----- ----- ---- FINAL DIAGN OSIS: Negat julio for Intra epith elial Ousmane tavarez or Sandro vanessa (NIL) . Elect ana paula mandujano d by KATHI Reno ret on 025 at 0854 TREE GIRDLER ----- ----- ----- ----- ----- ----- ----- ----- ----- ----- ----- ----- ----- ----- ----- ----- ----- ---- HPV RESUL TS: HPV mRNA E6/E7 : No HPV mRNA Detec pennie NOTE: This high risk HPV mRNA assay detec ts fourt een high- risk HPV types (16, 18, 31, 33, 35, 39, 45, 51, 52, 56, 58, 59, 66, 68) witho ut diffe renti ation . COMME NT: This speci men was revie wed by a Cytot echno logis t and/o r Patho logis t (as indic ated in this repor t) after evalu ation using the Thinp rep Imagi ng Syste m. CLINI CHRISTIANO INFOR MATIO N: Menst rual Statu s: LMP (if appli cable ): Clini christiano Histo ry/Pr eviou s Pap: Type of Neopl arielle (if appli cable ): Signi fican t Clini christiano Findi ngs: Other Histo ry: Hormo ekta (if appli cable ): PAP EDUCA SASKIA L NOTE: The Pap Test is a scree sheila test with an inher ent false negat julio rate. Liqui d-bas ed sampl ing may decre ase, but will not elimi stacy, false negat julio resul ts. A negat julio resul t does not precl ude the prese nce and/o r devel opmen t of disea se, since the prese nce of abnor mal cells in the sampl e depen ds on the locat ion of the lesio n and sampl ing techn ique. Hannah nued regul ar scree sheila is the best metho d of cance r preve ntion . If repor pennie cytol ogic findi ng do not corre late with physi christiano and/o r histo rical findi ngs, furth er inves tigat ion is recom jerri d, as clini erika warra nted. Not Available [facility] (Lab) [address], [place], [address], 04/13/2024 09:59:45 08/25/19 24 08/25/2023 US, obste tric, follo w-up No observ ation record ed. [email or web address] [address] [facility], [place], [address], 08/25/2023 17:42:08 08/25/19 24 08/25/2023 US, obste tric, follo w-up No observ ation record ed. [email or web address] [place] [address], [place], [address], 08/25/2023 17:33:32 03/22/19 25 03/22/2024 MAMMO , diagn ostic , bilat eral No observ ation record ed. [facility] [address], [place], [address], 03/25/2024 12:08:51 03/22/19 25 03/22/2024 MAMMO , diagn ostic , bilat eral No observ ation record ed. MEGGAN [facility] [address], [place], [address], 03/25/2024 12:08:51 Result Notes None recorded. Problems Name Problem SNOMED Code Status Onset Date Resolution Date Notes Provider Name and Address Organization Details Recorded Time Pregnanc y 13882453 Completed 202309/08/2023 [facility] 11:47:35 RhD negative [id number] Completed Rhogam @ [facility] 06/29/23 Liz omer [facility] 4 12:36:15 Rubella [id number] Completed Non-Immu ne - MMR PP Liz Quevedo [facility] 4 12:36:15 Gestatio nal diabetes mellitus [id number] Completed BS QID and serial growth Liz Quevedo [facility] 4 12:36:15 Problem Notes None recorded. Procedures Surgical History Date Name Laterality Status Provider Name and Address Organization Details Recorded Time 04/10/19 25 Date of Last Pap Smear completed Liz Quevedo [facility] 04/10/2024 16:38:20 09/01/19 24 section completed Liz Quevedo [facility] 10/04/2023 14:13:15 06/14/19 23 Date of Last Colonoscopy completed Liz Quevedo [facility] 02/01/2023 14:43:03 06/14/19 23 Colonoscopy completed Liz Quevedo [facility] 02/01/2023 14:41:58 02/13/19 12 extraction of wisdom tooth completed Liz Quevedo [facility] 02/01/2023 14:41:44 Imaging Results Imaging Date Name Status LastModified by Organiz ation Details LastModified Time 08/25/2023 US, obstetric, follow-up completed [email or web address] [address], [place], [address], 08/25/2023 17:42:08 08/25/2023 US, obstetric, follow-up completed [facility] [address], [place], [address], 08/25/2023 17:33:32 03/22/2024 MAMMO, diagnostic, bilateral completed [facility] [address], [place], [address], 03/25/2024 12:08:51 03/22/2024 MAMMO, diagnostic, bilateral completed [facility] [address], [place], [address], 03/25/2024 12:08:51 Procedure Notes None recorded. Medical Equipment None Reported. Allergies No known drug allergies Medications Name Sig Start Date Stop Date Status Note LastModified by Organization Details LastModified Time dicloxacill in 500 mg capsule TAKE 1 CAPSULE BY MOUTH EVERY 6 HOURS 02/21 completed Not Available Not Available Not Available terconazole 0.4 % vaginal cream INSERT 1 APPLICATO RFUL VAGINALLY EVERY DAY FOR 7 DAYS 02/01 completed Not Available Not Available Not Available fluconazole 150 mg tablet TAKE 1 TABLET BY MOUTH NOW AND REPEAT 1 TABLET ON DAY 4 10/03 completed Not Available Not Available Not Available hydrocodone 5 mg-acetamin ophen 325 mg tablet TAKE 1 TABLET BY MOUTH EVERY 3 HOURS NEEDED FOR BREAKTHRO UGH PAIN RATED 4-6 10/03 completed Not Available Not Available Not Available ondansetron HCl 4 mg tablet TAKE 1 TABLET EVERY 4 TO 6 HOURS BY MOUTH 09/10 completed Not Available Not Available Not Available Pyridium 100 mg tablet Take 1 tablet 3 times a day by oral route for 7 days. 02/01 completed Not Available Not Available Not Available amoxicillin 500 mg tablet TAKE 1 TABLET BY MOUTH TWICE A DAY FOR 7 DAYS 07/30 completed Not Available Not Available Not Available amoxicillin 875 mg tablet TAKE 1 TABLET BY MOUTH EVERY 12 HOURS FOR 10 DAYS 02/22 completed Not Available Not Available Not Available OneTouch Ultra Test strips USE TO TEST BLOOD GLUCOSE 4 TIMES A DAY 09/10 completed Not Available Not Available Not Available Flagyl 500 mg tablet Take 1 tablet twice a day by oral route as directed for 7 days. 02/01 completed Not Available Not Available Not Available benzonatate 100 mg capsule TAKE 1 CAPSULE BY MOUTH EVERY 8 HOURS NEEDED 02/22 completed Not Available Not Available Not Available ferrous sulfate 325 mg (65 mg iron) tablet TAKE 1 TABLET BY MOUTH TWICE A DAY 03/18 completed Not Available Not Available Not Available ibuprofen 600 mg tablet TAKE 1 TABLET BY MOUTH EVERY 6 HOURS 10/03 completed Not Available Not Available Not Available ferrous sulfate 325 mg (65 mg iron) tablet,shmuel yed release TAKE 1 TABLET BY MOUTH TWICE A DAY active Not Available Not Available No t Available amoxicillin 875 mg-potassiu m clavulanate 125 mg tablet TAKE 1 TABLET BY MOUTH TWICE A DAY FOR 10 DAYS 02/22 completed Not Available Not Available Not Available Kariva (28) 0.15 mg-0.02 mg (21)/0.01 mg (5) tablet TAKE 1 TABLET BY MOUTH EVERY DAY 02/01 completed Not Available Not Available Not Available nitrofurant oin monohydrate /macrocryst als 100 mg capsule TAKE 1 CAPSULE BY MOUTH EVERY 12 HOURS FOR 7 DAYS 03/18 completed Not Available Not Available Not Available active Not Available Not Avai lable Not Available OneTouch Ultra2 Meter USE TO TEST BLOOD GLUCOSE 09/10 completed Not Available Not Available Not Available OneTouch Delica Plus Lancet 30 gauge USE TO TEST BLOOD GLUCOSE 4 TIMES A DAY 09/10 completed Not Available Not Available Not Available Vitals Date Recorded Body height Body mass index (BMI) Body weight Systolic blood pressure Diastolic blood pressure Provider Name and Address Organization Details Last Updated DateTime 09/12/2023 165.1 cm 25.4 kg/m2 20658.91 g 121 mm[Hg] 85 mm[Hg] Harriett Oropezakhoi [facility] 4 14:12:44 Date Recorded Body height Body mass index (BMI) Body weight Systolic blood pressure Diastolic blood pressure Provider Name and Address Organization Details Last Updated DateTime 10/04/2023 165.1 cm 24.8 kg/m2 44522.26 g 117 mm[Hg] 71 mm[Hg] Liz Quevedo [facility] 4 14:11:24 Date Recorded Body height Body mass index (BMI) Body weight Systolic blood pressure Diastolic blood pressure Provider Name and Address Organization Details Last Updated DateTime 02/22/2024 165.1 cm 22.7 kg/m2 52997.72 g 107 mm[Hg] 73 mm[Hg] Laila Leni [facility] 5 16:44:33 Date Recorded Body height Body mass index (BMI) Body weight Systolic blood pressure Diastolic blood pressure Provider Name and Address Organization Details Last Updated DateTime 03/18/2024 165.1 cm 22.5 kg/m2 54271.97 g 106 mm[Hg] 70 mm[Hg] SANCHEZ Townsend [facility] 5 16:27:33 Date Recorded Body height Body mass index (BMI) Body weight Systolic blood pressure Diastolic blood pressure Provider Name and Address Organization Details Last Updated DateTime 04/10/2024 165.1 cm 22.6 kg/m2 83725.56 g 102 mm[Hg] 70 mm[Hg] Liz Quevedo [facility] 16:38:09 Social History Question Answer Notes LastModified by Organizat ion Details LastModified Time Tobacco Smoking Status Never Smoker Dona omer [facility] 02/24/2023 15:53:43 What Is Your Level Of Alcohol Consumption? Occasional Information not available 10/04/2023 If You Are , What Was Your Level Of Alcohol Consumption Prior To ? Occasional [email or web address] Information not available 02/24/2023 How Many Years Have You Consumed Alcohol? 12 Information not available 02/22/2022 Are You Blind Or Do You Have Difficulty Seeing? No Information not available 02/22/2022 What Is Your Level Of Caffeine Consumption? Occasional Information not available 02/22/2022 How Much Tobacco Do You Chew? None Information not available 02/22/2022 In The 14 Days Before Symptom Onset, Have You Had Close Contact With A Laboratory-confir med COVID-19 While That Case Was Ill? No Information not available 02/22/2022 In The 14 Days Before Symptom Onset, Have You Had Close Contact With A Person Who Is Under Investigation For COVID-19 While That Person Was Ill? No Information not available 02/22/2022 Have You Been To An Area Known To Be High Risk For COVID-19? No Information not available 02/22/2022 Are You Deaf Or Do You Have Serious Difficulty Hearing? No Information not available 02/22/2022 What Type Of Diet Are You Following? REGULAR Information not available 02/22/2022 What Is The Highest Grade Or Level Of School You Have Completed Or The Highest Degree You Have Received? 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 Yes Information not available 02/22/2022 Do You Use Protection During Sex? No Information not available 02/22/2022 Do You Use Your Seat Belt Or Car Seat Routinely? Yes Information not available 02/22/2022 Do You Have Smoke And Carbon Monoxide Detectors In Your Home? Yes Information not available 02/22/2022 How Much Tobacco Do You Smoke? No Information not available 02/22/2022 Do You Feel Stressed (tense, Restless, Nervous, Or Anxious, Or Unable To Sleep At Night)? [id number] Information not available 02/22/2022 Do You Use Any Illicit Or Recreational Drugs? No Information not available 02/22/2022 Do You Use Sunscreen Routinely? Yes Information not available 02/22/2022 Have You Used IV Drugs? No Information not available 02/22/2022 Sex: Unknown Functional Status Question Answer Note LastModified by Organizat ion Details LastModified Time Do you have difficulty walking or climbing stairs? No [email or web address] Information not available 02/24/2023 Are you able to walk? YESWOREST Information not available 02/22/2022 Are you able to care for yourself? Yes [email or web address] Information not available 02/24/2023 Do you have difficulty dressing or bathing? No [email or web address] Information not available 02/24/2023 What is your exercise level? Moderate Information not available 02/22/2022 Mental Status None recorded. Family History Relationship Description Onset Age of this Age Resolved Age Notes LastModified by Organization Details LastModified Time Father No current problems or disability [email or web address] Not available 10:15:17 Mother No current problems or disability [email or web address] Not available 10:15:17 Medical History Condition Response Allergies (Food, seasonal, environmental ) N Other N Breast Cancer N Drug/Latex Allergies/Reactions N Blood Transfusion N Dermatologic Disorders N Lung Disease N Defects or Inherited Disease N Breast Problem N Gestational Diabetes N Hematologic disorders N Anesthesia Complications N History of STI N Deep Vein Thrombosis N Polycystic ovary syndrome N Anxiety Disorder N Autoimmune disease N Arthritis N Infertility N Polyps N Acid Reflux (GERD) N History of abnormal pap N Cancer N Stroke N Varicosities N Neurologic/Epilepsy N Endometriosis N High Cholesterol N Headaches N Fibromyalgia N Kidney Disease N Heart Problems N Kidney or Bladder Problems N Thyroid Problems N GI Problems N Eating Disorder N Anemia N Art (IVF or FET) N Psychiatric Illness N Ovarian Cancer N Diabetes N Pulmonary (TB, Asthma) N Hepatitis/Liver Disease N No Past Medical History Y Eczema N Urinary Tract Infection N Abuse/Domestic Violence N Asthma N Trauma/Violence N Depression/ depression N Heart Disease N Pre-Eclampsia N Hypertension N Osteoporosis N Thrombophilias N Gynecological History Statement/Question Response Date of Last Mammogram Flow Moderate Date of LMP 12/02/2022 N Was last menstrual period normal Y STIs/STDs Y Date of Last Colonoscopy 06/13/2022 BCPs Desired Control Method Abnormal Pap Y HPV Vaccine Y Duration of Flow (days) 5 Current Control Method None Frequency of Cycle (Q days) 21 Sexually Active? Y Menses Monthly Y Date of DEXA bone scan Age of first menstrual cycle 14 Date of Last Pap Smear 04/10/2024 Sexual Problems? N LMP Definite N 02/11/2015 Obstetrics History GPAL:G 1 P 1 0 0 1 Type Value Full Term 1 Living 1 Total 1 Immunizations Vaccine Type Date Status Note Provider Santino sepulveda and Address Organization Details Recorded Time COVID-19, mRNA, LNP-S, PF, courtney-sucrose, 30 mcg/0.3 mL 02/11/2023 completed Liz Quevedo [facility] 02/24/2023 17:24:57 Past Encounters Encounter ID Performer Location Encounter Start Date Encounter Closed Date Diagnosis/Indication Diagnosis SNOMED-CT Code Diagnosis ICD10 Code Diagnosis Note [id number] Elana Kowng , [facility] [address] [address] 02/22/2022 09:47:52 02/22/2022 10:33:31 Gynecologic examination [id number] Z01.419 Take Calcium with Vitamin D 1200mg daily if not receiving in daily diet. It is strongly advised to have an annual flu shot and up can obtain at most pharmacies . If you have not had a TDap shot in the last 10 years you should obtain one as well. Discussed with patient & provided with informatio n regarding Gardisil vaccine to prevent the 4 strains for HPV that cause cervical cancer if under age 26. Encourage safe sexual practices, to use condoms and limit partners if not already in a monogamous relationsh ip. Do monthly self breast exams. Have mammogram yearly or every other year depending on family history. BRCA testing is now available for patients with strong genetic history of female cancer. If interested contact the office. Engage in daily exercise of low impact aerobic exercise 45-60 minutes 4-5 times weekly. Avoid tobacco and illicit drugs as well as using moderation with alcohol intake less than 1-2 8 oz beverages daily. This lifestyle behavior pattern will lead to less health conditions and longer life span. If BMI greater than 25 weight watchers or dietary consult advised. Patient received above instructio ns, and questions have been answered. If you have any questions please call or respond to this email. Patient was made aware of the patient portal and may obtain a paper copy of today's plan if desired. Pap sent STD Screen declined Genetic Screen discussed Colon Screen na Dexa Screen na Routine Labs PCPTrawilfredojuly pereyra to [facility] 10/2022 [facility] ion care management [id number] Z30.9 [id number] Elnaa Kwong [facility] [address],[place] [address] 04/08/2022 14:17:06 04/08/2022 15:58:51 Urinary symptoms [id number] R39.9 Medication reviewed & labs sent.will contact if any changes are required.N MARZENAES VISIT [id number] [facility] [address],[place] [address] 02/01/2023 13:48:21 02/01/2023 14:16:23 [id number] Myra Leija [facility] [address],[place] [address] 02/01/2023 13:48:46 02/01/2023 15:56:24 Amenorrhea [id number] N91.2 Venereal d isease screening [id number] Z11.3 [id number] [facility] [address],[place] [address] 02/24/2023 15:53:28 02/24/2023 16:50:00 screening [id number] Z36.82 Z3A.12 [id number] Liz Quevedo [facility] [address],[place] [address] 1 02/24/2023 15:54:07 02/24/2023 18:07:02 Gestation period, 12 weeks 75078757 Z3A.12 [id number] Myra Leija [facility] [address],[place] [address] 03/24/2023 15:57:55 03/27/2023 13:05:36 Routine care [id number] Z34.92 [id number] [facility] [address],[place] [address] 1 04/21/2023 15:54:49 04/21/2023 17:01:00 screening for malformation 918475802 Z36.3 Z3A.20 screening 2437 26176 Z36.3 [id number] Myra Leija [facility] [address],[place] [address] 04/21/2023 15:55:13 04/24/2023 09:47:54 Routine care [id number] Z34.92 [id number] Myra Leija [facility] [address],[place] [address] 05/19/2023 16:29:07 05/22/2023 05:17:50 Routine care 445874439 Z34.92 [id number] Anna Meyer [facility] [address],[place] [address] 1 05/19/2023 16:29:27 05/19/2023 17:10:00 condition affecting obstetrical care of mother [id number] O35.8XX0 Z3A.24 [id number] [facility] [address],[place] [address] 06/28/2023 10:25:00 06/28/2023 11:00:21 Suspected abnormality affecting management of mother [id number] O35.8XX0 Z3A.29 [id number] Myra Leija [facility] [address],[place] [address] 06/28/2023 11:03:16 06/28/2023 11:54:36 Routine care [id number] Z34.92 [id number] Tanya Carrillo [facility] [address],[place] [address] 07/14/2023 15:13:29 07/18/2023 14:55:02 Gestational diabetes mellitus 17878492 O24.410 Pt and here for diet teaching. Went over ideal ranges for FBS and pp BS. Went over carb counting and carb ranges for each meal/snack . Gave ideas for foods to eat for meals/snac ks. Discussed drink options and to avoid soda and juice. Told pt she can go online to ADA for meal options or to look up low carb meal recipes online for ideas as well. Pt picked up glucometer 2 days ago and all levels so far were normal. Told pt to continue checking BS QID and adjusting diet to follow low carb diet to try to keep BS within normal range. Pt aware if sugars aren't controlled by diet we would discuss starting insulin. Pt informed if medication to control sugars is needed we would discuss testing. Pt wants to know if sugars are all normal if she can stop checking BS. Told pt if all BS are normal for an extended period of time then we can discuss checking BID instead of QID. Questions were answered and pt verbalized understand ing. KVNG unger [id number] Myra Leija [facility] [address],[place] [address] 07/14/2023 16:08:55 07/14/2023 17:11:15 Routine care [id number] Z34.92 [id number] Corey Chawla MD [facility] [address],[place] [address] 07/31/2023 17:24:54 08/01/2023 10:45:44 Routine care 805298424 Z34.03 [id number] Liz Quevedo [facility] [address],[place] [address] 07/31/2023 18:14:29 08/01/2023 10:45:18 bradycardia 330754540 O36.8399 [id number] ADAN ASENCIO MD [facility] [address],[place] [address] 08/18/2023 10:57:38 08/18/2023 12:11:43 Gestational diabetes mellitus 73667720 O24.410 Gestation period, 37 weeks 10572852 Z3A.37 [id number] [facility] [address],[place] [address] 08/25/2023 15:24:46 08/28/2023 09:01:47 Gestational diabetes mellitus 95263599 O24.410 Z3A.38 Pt and here for diet teaching. Went over ideal ranges for FBS and pp BS. Went over carb counting and carb ranges for each meal/snack . Gave ideas for foods to eat for meals/snac ks. Discussed drink options and to avoid soda and juice. Told pt she can go online to ADA for meal options or to look up low carb meal recipes online for ideas as well. Pt picked up glucometer 2 days ago and all levels so far were normal. Told pt to continue checking BS QID and adjusting diet to follow low carb diet to try to keep BS within normal range. Pt aware if sugars aren't controlled by diet we would discuss starting insulin. Pt informed if medication to control sugars is needed we would discuss testing. Pt wants to know if sugars are all normal if she can stop checking BS. Told pt if all BS are normal for an extended period of time then we can discuss checking BID instead of QID. Questions were answered and pt verbalized understand ing. KVNG unger [id number] [facility] [address],[place] [address] 08/25/2023 15:25:10 08/28/2023 09:01:31 Routine care [id number] Z34.92 Breech presentation 6096 002 O32.1XX9 [id number] Harriett Gonzales [facility] [address],[place] [address] 09/11/2023 11:27:44 09/11/2023 12:13:22 Candidiasis of vagina 52220009 B37.31 - reports hx of yeast infections , starting to have some irritation - diflucan sent, call if symptoms are not improved care [id number] 8 Z39.2 S/p c section on . Incision well-heale d without any signs of infection2 . RTC 4wks for post-partu m check [id number] ADAN ASENCIO MD [facility] [address],[place] [address] 09/12/2023 13:57:30 09/13/2023 11:12:30 Mastitis associated with 110619152 O91.23 - exam suspicious for left mastitis- discussed pumping regularly, ice packs and scheduled NSAIDS- patient to call if worsening or not improved in 48 hours [id number] Myra Leija CNM [facility] [address],[place] [address] 10/04/2023 14:00:23 10/05/2023 09:44:33 care 093968308 Z39.2 normal pp visit f/u 6 month wweok to check hormone labs (HL-pCOS) after breastfeed ing [id number] Laila Farrar [facility] [address],[place] [address] 02/22/2024 16:30:11 02/22/2024 17:13:34 Urinary symptoms 814611122 R39.9 Patient presents with symptoms of UTI. Results of dipstick were {{positive * negative }} for UTI.Advise d to drink clear fluids, Tylenol for pain and take prescribed medication s as instructed . Patient encouraged to follow up within 1 week if not improving. Recommende d urology referral to further discuss evaluation /managemen t of frequent UTIs and r/o other conditions such as interstiti al cystitis. Patient would like to move forward with urology referral. [id number] DARCIE Robertson [facility] [address],[place] [address] 03/18/2024 16:08:24 03/19/2024 10:01:26 Breast lump 31576136 N63.0 order given for bilateral breast u/s with axillaenco uraged to schedulequ estions answeredpr ecautions discussed (notify office with any new symptoms such as redness/fe vers/flu-l jazmyne symptoms) Time spent in visit is a total of 20 mins with at least 50% of visit consisting of counseling and review of plan of care. Axillary lymphadenopathy 385505201 R59.0 [id number] Myra Leija CNM [facility] [address],[place] [address] 04/10/2024 16:09:52 04/10/2024 17:13:12 Gynecologic examination 71901384 Z01.419 Health Concerns Section Related Observation LastModified by Organization Detai ls LastModified Time None Recorded Concern Status LastModified by Organization Details LastModified Time None Recorded Advance Directives Directive None Recorded Payers Encounter Date Sequence Insurance Name Policy Number Policy Rai Covered Member ID Rai Member ID Guarantor Name 09/12/2023 1 [employer] [id number] Katherine Blackman [id number] Cara Blackman 10/04/2023 1 [employer] [id number] Katherine Blackman [id number] Cara Blackman 02/22/2024 1 [employer] [id number] Katherine Blackman [id number] Cara Blackman 03/18/2024 1 [employer] [id number] Katherine Blackman [id number] Cara Blackman 04/10/2024 1 [employer] [id number] Katherine Blackman [id number] Cara Blackman Notes Date Note Type Note Provider Name and Address Organization Details Recorded Time 09/12/2023 text/html Patient presents for evaluation of breast lumps. Reports two small lumps in the left axilla since milk came in, as well as a large area of induration and redness on the medial left breast since yesterday. Denies nausea, vomiting, fevers, or chills. Pumping on normal schedule, no nipple breakdown. ADAN ASENCIO MD [address], [place], [address], [facility] 09/12/2023 18:09:13 10/04/2023 text/html VisitReported bypatient.Quality:p rimary C/S; breech Context:complicatio ns of : GDM; complications of labor: none; complications: none; good support from partner/family; resumed menstrual bleeding no Associated Symptoms:no abnormal bleeding; no vaginal discharge; no pelvic pain; laceration well healed; no constipation; no fecal incontinence; no dysuria; no urinary incontinence; no fever; no problems; no mastitis; normal mood Contraception Plan:declines contraceptionNotes: doing well, exclusively pumping Myra Leija CNM [address], [place], [address], [facility] 10/04/2023 17:30:14 02/22/2024 text/html Patient here wit h c/o dysuria, strong urine odor, urinary urgency x 2 days.Patient states that she has history of frequent urinary tract infections since 2019, every 3-4 months, most of which have been confirmed with urine culture. Patient denies vaginal symptoms, such as itching, discharge, or vulvar irritation.Patient states that she just finished Dicloxacillin for mastitis. Laila omer, [facility] 02/22/2024 17:27:45 03/18/2024 text/html 34yo [id number] for evaluation of left breast lumptreated for mastitis in Jan when first noticed lumpno longer experiencing redness/pain/fevers feels as if axilla are enlarged bilaterally at timesshe is exclusively pumping (about 4 times per day) neg pain/rednessneg n/v/fneg flu-like symptoms DARCIE Robertson [address], [place], [address], [facility] 03/19/2024 09:25:04 04/10/2024 text/html Annual GYNReport ed bypatient.History:n o gynecologic complaints Menstrual cycle:no cycle, pumping Urinary symptoms:No hematuria; No incontinence Vulva:No genital lesion Vagina:Normal vaginal discharge Breast:No breast pain; No breast lump; No nipple discharge Sexual complaints:No sexual complaints; No pain during intercourse; Normal libido Menopausal Symptoms:No menopausal symptoms; Normal vaginal lubrication Psychological symptoms:No depression; No anxiety; No PMDD Preventive measures:Encourage self breast examination; Encourage regular exercise; Encourage no tobacco useNotes:doing well Myra Leija CNM [address], [place], [address], [facility] 04/10/2024 16:55:17 OBGyn Episode Ob Episode Information Episode Created Date Number of Fetuses Patient Bloodtype Patient rh Status Prepregnancy Weight lbs Domestic Partner Domestic Partner Phone Father Name Land Clearer Status 02/24/19 24 1 O Negative 156 Hammad Blackman CLOSED Fetus Data First Name Last Name Admitted to NICU Weight (g) Sex Living Outcome Pediatric Complications Fetus ID Race Codes Race Delivery Type 3401.94 F [place] [id number] Primary Problems Problem Notes pyelectasis rpt 4 weeks Problem Name Start Date End Date Resolution Snomed Code Not e RhD negative [id number] Rhogam @ 28wks - received 06/29/23 Rubella [id number] Non-Immune - MMR PP Gestational diabetes mellitus 01976678 BS QID and seri al growth us Pal Calculation Initial Pal Date Initial Exam Date Initial Exam Provider Initial Ultrasound Date Last Menstrual Period Date Ultra Sound Weeks Gestation 09/08/2023 02/01/2023 02/24/2023 12/02/2022 12 Eighteen To Twenty Week Pal Update Ultra Sound Date Fundal Height At Umbil Quickening Date Ultra Sound Latest Weeks Gestation Final Pal Confirmed By Final Pal Confirmed Date Final Pal Date Ultra Sound Latest Days Gestation 0 02/25/2023 09/08/19 24 0 Pre-[place] Flowsheet Flowsheet Date 02/24/2023 Hill Score Blood Edema Fundus Height Fundus Units Glucose Ketones Leukocytes Nitrite Labor Signs Protein Cervic Dilation Cervic Effacement Cervic Station neg none none trace Type Weight in lbs Pre/Post Dialysis Refused Weight 158.825408059112 BP Diastolic BP Location Tested BP Systolic BP Type 80 117 Fetus Heart Rate Present Fetus Movement A No Comments patient is having some nause a and vomiting. unremarkable medical, surgical history, reviewed education and precautions, prefers more natural approach f/u 4 weeks, plan labs early next week (lab was closed)reviewed US Flowsheet Date 03/24/2023 Hill Score Blood Edema Fundus Height Fundus Units Glucose Ketones Leukocytes Nitrite Labor Signs Protein Cervic Dilation Cervic Effacement Cervic Station neg none none trace Type Weight in lbs Pre/Post Dialysis Refused Weight 161.278652058970 BP Diastolic BP Location Tested BP Systolic BP Type 74 106 Fetus Heart Rate Present A 142 Present Fetus Movement A Yes Comments patient is having some heada ches, little pain, discharge and nausea. reviewed education and precautions f/u 4 weeks anatomy Flowsheet Date 04/21/2023 Hill Score Blood Edema Fundus Height Fundus Units Glucose Ketones Leukocytes Nitrite Labor Signs Protein Cervic Dilation Cervic Effacement Cervic Station Type Weight in lbs Pre/Post Dialysis Refused BP Diastolic BP Location Tested BP Systolic BP Type Fetus Heart Rate Present Fetus Movement Comments Flowsheet Date 04/21/2023 Hill Score Blood Edema Fundus Height Fundus Units Glucose Ketones Leukocytes Nitrite Labor Signs Protein Cervic Dilation Cervic Effacement Cervic Station neg none none trace Type Weight in lbs Pre/Post Dialysis Refused Weight 163.369993137613 BP Diastolic BP Location Tested BP Systolic BP Type 74 121 Fetus Heart Rate Present Fetus Movement A Yes Comments patient states that having s ome headaches and discharge.reviewed education, precautions, anatomy complete, mild pyelectasis rpt 4 weeks, Flowsheet Date 05/19/2023 Hill Score Blood Edema Fundus Height Fundus Units Glucose Ketones Leukocytes Nitrite Labor Signs Protein Cervic Dilation Cervic Effacement Cervic Station neg none none trace Type Weight in lbs Pre/Post Dialysis Refused Weight 168.696748601181 BP Diastolic BP Location Tested BP Systolic BP Type 76 117 Fetus Heart Rate Present Fetus Movement A Yes Comments Patient states that having s ome back pain, discussed residency director, labor, us reviewed efw 67% pyelectasis still seen mild, rpt 4 weeks, education and precautions, gct at next visit Flowsheet Date 05/19/2023 Hill Score Blood Edema Fundus Height Fundus Units Glucose Ketones Leukocytes Nitrite Labor Signs Protein Cervic Dilation Cervic Effacement Cervic Station Type Weight in lbs Pre/Post Dialysis Refused BP Diastolic BP Location Tested BP Systolic BP Type Fetus Heart Rate Present Fetus Movement Comments Flowsheet Date 06/28/2023 Hill Score Blood Edema Fundus Height Fundus Units Glucose Ketones Leukocytes Nitrite Labor Signs Protein Cervic Dilation Cervic Effacement Cervic Station Type Weight in lbs Pre/Post Dialysis Refused BP Diastolic BP Location Tested BP Systolic BP Type Fetus Heart Rate Present Fetus Movement Comments Flowsheet Date 06/28/2023 Hill Score Blood Edema Fundus Height Fundus Units Glucose Ketones Leukocytes Nitrite Labor Signs Protein Cervic Dilation Cervic Effacement Cervic Station neg none none trace Type Weight in lbs Pre/Post Dialysis Refused Weight 171.957589092545 BP Diastolic BP Location Tested BP Systolic BP Type 73 111 Fetus Heart Rate Present Fetus Movement A Yes Comments Patient states that her hear t rate is elevated sometimes. bilateral pyelectasis resolved, breech, efw 71%, has a residency director, mahendra , planning low intervention, unmedicated , +FM, planning gct and rhogam today, precautions and education reviewed, will pplan to meet dr. asencio and dr. chawla Flowsheet Date 07/14/2023 Hill Score Blood Edema Fundus Height Fundus Units Glucose Ketones Leukocytes Nitrite Labor Signs Protein Cervic Dilation Cervic Effacement Cervic Station Type Weight in lbs Pre/Post Dialysis Refused BP Diastolic BP Location Tested BP Systolic BP Type Fetus Heart Rate Present Fetus Movement Comments Flowsheet Date 07/14/2023 Hill Score Blood Edema Fundus Height Fundus Units Glucose Ketones Leukocytes Nitrite Labor Signs Protein Cervic Dilation Cervic Effacement Cervic Station none 32 Type Weight in lbs Pre/Post Dialysis Refused Weight 170.524464386105 BP Diastolic BP Location Tested BP Systolic BP Type 71 106 Fetus Heart Rate Present A 145 Present Fetus Movement Comments Patient states that having s ome pain in the evening. gdm diet teaching today, rn reviewed blood sugars, precautions and education, ok for Tdap Flowsheet Date 07/31/2023 Hill Score Blood Edema Fundus Height Fundus Units Glucose Ketones Leukocytes Nitrite Labor Signs Protein Cervic Dilation Cervic Effacement Cervic Station Type Weight in lbs Pre/Post Dialysis Refused Weight 169.086148209835 BP Diastolic BP Location Tested BP Systolic BP Type 74 112 Fetus Heart Rate Present Fetus Movement Comments Flowsheet Date 07/31/2023 Hill Score Blood Edema Fundus Height Fundus Units Glucose Ketones Leukocytes Nitrite Labor Signs Protein Cervic Dilation Cervic Effacement Cervic Station neg none none trace Type Weight in lbs Pre/Post Dialysis Refused Weight 169.746492278470 BP Diastolic BP Location Tested BP Systolic BP Type 74 L arm 112 sitting Fetus Heart Rate Present A 145 Fetus Movement A Yes Comments Normal blood sugars, diet co ntrolled, otherwise no complaints, abnormal heartbeat while listening on Doppler. Some bradycardia, some skipped beats, 2 get NST. Flowsheet Date 08/18/2023 Hill Score Blood Edema Fundus Height Fundus Units Glucose Ketones Leukocytes Nitrite Labor Signs Protein Cervic Dilation Cervic Effacement Cervic Station neg trace none trace 0cm 50% -3 Type Weight in lbs Pre/Post Dialysis Refused Weight 165.284210070278 BP Diastolic BP Location Tested BP Systolic BP Type 81 L arm 119 sitting Fetus Heart Rate Present A 155 Fetus Movement A Yes Comments Doing well, good movem ent. No ctx, LOF, VB. Swelling in left ankle. GBS collected today. SVE closed. Discussed labor precautions. RTC 1 week. Flowsheet Date 08/25/2023 Hill Score Blood Edema Fundus Height Fundus Units Glucose Ketones Leukocytes Nitrite Labor Signs Protein Cervic Dilation Cervic Effacement Cervic Station Type Weight in lbs Pre/Post Dialysis Refused BP Diastolic BP Location Tested BP Systolic BP Type Fetus Heart Rate Present Fetus Movement Comments Flowsheet Date 08/25/2023 Hill Score Blood Edema Fundus Height Fundus Units Glucose Ketones Leukocytes Nitrite Labor Signs Protein Cervic Dilation Cervic Effacement Cervic Station trace Type Weight in lbs Pre/Post Dialysis Refused Weight 165.709140057588 BP Diastolic BP Location Tested BP Systolic BP Type 79 116 Fetus Heart Rate Present Fetus Movement A Yes Comments Patient states that having c ontractions, left abdominal pain, discharge and swelling. reviewed education and precautions, discussed US, geronimo breech presentation, gestational diabetes diet controlled, PAOLA 8 cm, dr. asencio co-managing, discussed options of external version vs primary , risks and benefits reviewed, will plan section Menstrual History Last Menstrual Date Menses Monthly On Bcp Conception Prior Menses Frequency Hcg Plus Date Menarche Onset Age 1012/02/2022 Genetic Screening And Infection History Question Response Note Mental Retardation/Autism false Patient's Age Will Be 35 Yea rs Or Older At Estimated Date of Delivery false Thalassemia ([place]ian, Citizen Of [place], Mediterranean, Or Background): MCV < 80 false Neural Tube Defect (Meningom yelocele, Spina Bifida, Or Anencephaly) false Congenital Heart Defect false Down Syndrome false Duc-Sachs (eg, Episcopalian, Cajun, English-Russian) f alse Flavio Disease false Sickle Cell Disease Or Trait () false Hemophilia Or Other Blood Disorders false Muscular Dystrophy false Cystic Fibrosis false [place]'s Chorea false Intellectual Disability/Autism false If Yes, Was Person Tested For Fragile X? false Other Inherited Genetic Or Chromosomal Disorder false Maternal Metabolic Disorder (eg, Type 1 Diabetes , PKU) false Patient Or Baby's Father Had A Child With Defects Not Listed Above false Recurrent Loss, Or A Stillbirth false Medications (including Suppl ements, Vitamins, Herbs, OTC Drugs), Illicit/Recreational Drugs, Alcohol true pnv, zofran If Yes, Agent(s) And Strength/Dosage false Any Other Genetic History false Live With Someone With TB Or Exposed To TB false Patient Or Partner Has History Of Genital Herpes false Rash Or Viral Illness Since Last Menstrual Perio d false History Of STD, Gonorrhea, Chlamydia, HPV, Syphi lis false Other Infection History false History of HIV false History of Hepatitis false Prior GBS-infected child false Hemoglobinopathy Or Carrier false Other Structural Defect false Recent Travel History Outside of Country false Delivery Information Delivery Date Delivery Type Labor Anesthesia Weeks Gestation Incision Type Labor Labor Length Hrs Delivered By Post Complications Tubal Sterilization Discharge Date Comments 4 None Regional-Sp inal 39 false Asencio Discharge Information Feeding Method Contraceptive Method Maternal HG B and HCT Levels
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
--- OUTSIDE RECORDS SUMMARY | 2024-05-12 17:21 | XMS_ITS | Referral Summary ---
Author Organization [facility] Address [address] [place] [address] Care Team Providers Care Basting Cleaner Name Role Phone Anila Springer MD Primary Care Provider +1- [phone] Elana Kwong RN ADVICE Unavailable +1- [phone] Allergies No known active allergies Medications nitrofurantoin monohydrate (MACROBID) 100 mg capsule TAKE 1 CAPSULE BY MOUTH EVERY 12 HOURS FOR 7 DAYS 04/08/2022 Active Kariva, 28, 0.15-0.02 mgx21 /0.01 mg x 5 per tablet Take 1 tablet by mouth daily 05/23/2022 Active Active Problems Problem Noted Date Diagnosed Date Rectal bleeding 05/27/2022 Overview (05/27/2022): Added automatically from request for surgery [id number] Family history of colon cancer 05/27/2022 Overview (05/27/2022): Added automatically from request for surgery [id number] Iron deficiency anemia 05/27/2022 Overview (05/27/2022): Added automatically from request for surgery [id number] Chronic diarrhea 05/27/2022 Assessment & Plan (05/27/2022 1:55 PM CDT): Lower abdominal cramping with urgency and diarrhea 1-5 episodes of watery stool after eating usually about once a week, when traveling occurs more due to eating unpredictably. Saw dining car steward and found no specific food triggers [facility] month ago couldn't leave restaurant because [...] 05/10/2022 Assessment & Plan (01/28/2022 10:56 AM LAB ANIMAL TECHNICIAN): Acute problem, present times 1 week [...] 05/11/19 Assessment & Plan (04/11/2019 4:36 PM LAB ANIMAL TECHNICIAN): Patient has small non-thrombosed hemorrhoid noted [...] Unspecified 12/30/1996, 5,1992,05/08 Tdap 01/18/2017 Varicella 01/05/2015,02/22/1995 Social History Tobacco Use Types Packs/Day Years [...] on file Legal Sex Female 11:13 AM LAB ANIMAL TECHNICIAN Gender Identity Not on file Sexual Orientation Not on file 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 Not on file Not on file Last Filed Vital Signs Vital Sign Reading [...] 05/30/2022 9:17 AM CDT Plan of Treatment Not on file Procedures Procedure Name Priority Date/Time Associated Diagnosis Comments PAP AND HIGH RISK HPV, REFLEX TO GENOTYPING Routine 02/11/2021 9:14 AM LAB ANIMAL TECHNICIAN from Last 3 Months or Most Recently Relevant to Health Maintenance Results * Pap and High Risk HPV, reflex to Genotyping (02/11/2021 9:14 AM LAB ANIMAL TECHNICIAN) Pap test 02/11/2021 9:14 AM LAB ANIMAL TECHNICIAN 02/11/2021 9:14 AM LAB ANIMAL TECHNICIAN Narrative 02/15/2021 4:46 PM LAB ANIMAL TECHNICIAN [facility] Department of Pathology [address] [place], [place] [id number] Final Report Note to Patients: This report [...] the details. Patient Name: SADIA BLACKMAN Address: [address] [place] [address] Gender: F : 1990 (Age: 30) Service: Laboratory Location: Lab [facility] #: [id number] Patient Type: Ref Lab Taken: 02/11/2021 Received: 02/11/2021 Accessioned:: 02/15/2021 Reported: 02/15/2021 Physician(s): DARCIE Jacinto WHNP Diagnosis: Source of Specimen: SCREENING THIN PREP IMAGED PAP w/ Reflex HPV Specimen Adequacy: - Satisfactory for evaluation; endocervical/transformation zone component present General Category: - Negative for intraepithelial lesion or malignancy Interpretation/Results: - Numerous RBC's Dahiana Dexter, CT(ASCP) Report Electronically Reviewed and Signed Out By [...] determined by the Surgical Pathology Department at as part of an ongoing quality control lab tech program and in compliance with federally mandated [...] characteristics determined by the Surgical Pathology Department [facility]. It has not been cleared or approved by the U. S. Food and Drug Administration. Diane Allen NP LAB CYTOLOGY ORDERABLES F inal Result from Last 3 Months or Most Recently Relevant to Health Maintenance Insurance [employer] ACCESS CHOICE [facility] HMO Advance Directives For more information, please contact: [phone] Documents on File Type Date Recorded Patient Billing Administrator Expl anation ADVANCE DIRECTIVE 05/10/2022 REVISED PO WER OF SOIL CONSERVATION TECHNICIAN-MEDICAL ADVANCE DIRECTIVE 04/26/2021 3:54 PM POWER OF SOIL CONSERVATION TECHNICIAN-MEDICAL ADVANCE DIRECTIVE 01/05/2015 POWER OF A TTORNEY-MEDICAL * Full Code (Latest Code Status on File) Date Activated Date Inactivated Comments 05/30/2022 9:25 AM 05/30/2022 3:11 PM * Full Code Date Activated Date Inactivated Comments 05/30/2022 9:25 AM 05/30/2022 9:25 AM Care Teams Basting Cleaner Relationship Specialty Start Date End Date Anila Spirnger MD PCP - General 05/13/16 Elana Kwong NP Nurse Practitioner Nurse Practitioner 05/10/22
--- NOTE | 2024-05-12 17:23 | ED.GENADULT ---
HPI - General Adult General Chief complaint: Upper Respiratory Infection Stated complaint: sore throat Time Seen by Provider: 05/12/24 17:23 Source: patient Mode of arrival: ambulatory Limitations: no limitations History of Present Illness HPI narrative: 34-year-old female patient presents to [facility] with complaints of sore throat for the past 5 days that has gotten worse over the last 2 days. Patient states she feels like her lymph node on the right side is swollen. Denies any fevers, body aches or chills. Denies any ear pain runny nose or congestion. Denies any coughing, chest pain or shortness of breath. Patient states she has only been taking Tylenol at home. Related Data Home Medications ?Medication ?Instructions ?Recorded ?Confirmed ?Last Taken ?Type prenat.vits,fabi,yrg-litq-sxkyb 1 tablet 08/18/23 08/30/23 History Allergies Allergy/AdvReac Type Severity Reaction Status Date / Time No Known Allergies Allergy Verified 05/12/24 17:31 Review of Systems Review of Systems: CONSTITUTIONAL: Denies fever, chills, or sweats. EYES: Denies visual changes, redness, or discharge. ENT: Denies rhinorrhea, congestion, Positive sore throat, or otalgia. CARDIOVASCULAR: Denies chest pain, palpitations, or edema. RESPIRATORY: Denies cough or dyspnea. GASTROINTESTINAL: Denies abdominal pain, nausea, vomiting, or diarrhea. GENITOURINARY: Denies dysuria or hematuria. SKIN: Denies rash or itching. MUSCULOSKELETAL: Denies back pain, joint pain, or myalgia. NEUROLOGIC: Denies headache, numbness, or weakness. PSYCHIATRIC: Denies anxiety or depression. [facility] Past Medical History Medical History Gestational diabetes Surgical History Surgical History H/O colonoscopy Family History Family History Other Patient denies significant medical history Social History Social History Smoking status: Never smoker Substance use: never Do You Feel Safe in your Home?: Yes Lack of Transportation: No Lack of Food: Never True Current Housing: I Have Housing Concerned About Future Housing: No Difficulty Paying Gas/Electric Bills: No Difficulty Paying for Meds: No Currently Unemployed: No Education: Master's Degree or Higher Difficulty w/ Childcare or Family Care: No Spiritual care concerns: No Comments At the time of my signature I agree with nursing past medical history, surgical, social, and family history. There is no relevant family history pertinent to the presenting complaint. Exam Narrative: GENERAL: Well-appearing, well-nourished, and in no acute distress. HEAD: Normocephalic, atraumatic. EYES: PERRLA and EOMI. ENT: Nares clear, no rhinorrhea or epistaxis. Mucous membranes moist. posterior pharynx with a 2+ enlarged tonsil noted to the right side but no exudates noted. Slight erythema. Bilateral TMs are clear no erythema foreign bodies the canal. NECK: Supple. No lymphadenopathy CHEST: Clear to auscultation. No respiratory distress. HEART: Regular rate and rhythm. No murmur heard. Normal peripheral pulses. ABDOMEN: Soft, nontender, nondistended, normal active bowel sounds. EXTREMITIES: Normal range of motion. No edema. SKIN: Warm, dry, no rash. NEURO: No focal deficits. Alert and oriented x3. Course Course Level of Care: Express Care Visit Vital Signs Vital signs: Vital Signs Temperature 36.2 C L 05/12/24 17:31 Pulse Rate 76 05/12/24 17:31 Respiratory Rate 18 05/12/24 17:31 Blood Pressure 111/72 05/12/24 17:31 Pulse Oximetry 98 05/12/24 17:31 Oxygen Delivery Room Air 05/12/24 17:31 Temperature 36.2 C L 05/12/24 17:31 Pulse Rate 76 05/12/24 17:31 Respiratory Rate 18 05/12/24 17:31 Blood Pressure 111/72 05/12/24 17:31 Pulse Oximetry 98 05/12/24 17:31 Oxygen Delivery Room Air 05/12/24 17:31 Vital signs reviewed. Medical Decision Making MDM Narrative Medical decision making narrative: Discussed with patient that her point of care testing today is negative. Discussed with her she can continue taking [id number] Zyrtec and Tylenol for symptoms and would and also encourage warm salt water gargles, hot tea and honey to help with any throat pain. Discussed with her we will send the throat swab off to the lab for culture and if the culture comes back positive we will call her in antibiotics at that time. Patient verbalized understanding denies any other questions or concerns at this time Differential Diagnosis Differential Diagnosis: Differential diagnosis: Allergic rhinitis, chronic sinusitis, tonsillitis, acute sinusitis, infectious mononucleosis, seasonal influenza, pertussis, diphtheria, meningococcal disease, viral syndrome, viral bronchitis, RSV, COVID-19 Vital Signs Vital Signs: Vital Signs Temperature 36.2 C L 05/12/24 17:31 Pulse Rate 76 05/12/24 17:31 Respiratory Rate 18 05/12/24 17:31 Blood Pressure 111/72 05/12/24 17:31 Pulse Oximetry 98 05/12/24 17:31 Oxygen Delivery Room Air 05/12/24 17:31 Temperature 36.2 C L 05/12/24 17:31 Pulse Rate 76 05/12/24 17:31 Respiratory Rate 18 05/12/24 17:31 Blood Pressure 111/72 05/12/24 17:31 Pulse Oximetry 98 05/12/24 17:31 Oxygen Delivery Room Air 05/12/24 17:31 Lab Data Labs: Lab Results 05/12/24 05/12/24 Range/Units 17:50 17:56 POC Influenza A Ag Negative (Negative) POC Influenza B Ag Negative (Negative) POC SARS CoV-2 Ag Negative (Negative) POC Grp A Strep Screen Negative (Negative) Critical Care Time Critical Care Time Critical Care Time: No Discharge Plan Discharge Clinical Impression: Pharyngitis Patient Disposition: Home, Self-Care Condition: Stable Instructions: Antibiotic Form, Pharyngitis (ED) Additional Instructions: A sore throat can be caused by an infection from a virus or bacteria. Sore throat can also be caused by postnasal drip, allergies, and exposure to smoke. A viral sore throat last 3-4 days and cannot be treated with antibiotics. One type of sore throat virus, infectious mononucleosis ( mono ), can last for 3 weeks and older children. The germs that cause these infections are contagious and can be spread by coughing or sharing drinks or utensils. Contact her primary care physician or go to the ER if: Your trouble breathing or swallowing because her throat is swollen or sore. You're drooling because it hurts too much to swallow. You're painful lump in your throat go away after 5 days. You're fever is higher than 10 2??F or last longer than 3 days. You have confusion. You are blood in your throat. You're sore throat should feel better within 3-5 days without treatment if it is caused by virus. You may need the following: Ibuprofen or Tylenol as needed for pain or fever Gargle warm salt water Drink more liquids, cold or warm drinks may help soothe her throat. Humidifier in your room. Cough drops, ice, soft foods, or popsicles may help soothe her throat. A spoonful of honey could help with inflammation and soothe her throat. Wash her hands with soap and water, do not share food or drinks, throat away her toothbrush after 72 hours. Patient Language: Trinidadian Prescriptions: No Action prenat.vits,fabi,kwc-cpje-mtowb Tablet 1 tablet Follow-up/Referrals: Christy Rhoades APRN [Primary Care Provider] - Time of Disposition: 18:00
[2024-05-12 17:31] VITALS: BP 111/72; PULSE 76; RESP 18; TEMP 36.2; O2SAT 98
[2024-05-12 17:52] LABS: EDSTREPNEGPOS1 Negative (Negative)
[2024-05-12 17:57] LABS: EDCOVIDSCREEN Negative (Negative); EDINFLUASCREEN Negative (Negative); EDINFLUBSCREEN Negative (Negative)
== END 2024-05-12 18:04 | disposition home or self-care (01) ==
PROVIDERS: Emergency Provider Nurse Practitioner Family; PCP Nurse Practitioner Family
DX: J02.9 Acute pharyngitis, unspecified (principal); Z20.822 Contact with and (suspected) exposure to COVID-19
CPT/HCPCS: 87081; 87426; 87804; 87880; 99213; G0463

== ENCOUNTER 2024-08-30 07:22 | Emergency (ER) | payer OTHER, SELFPAY ==
--- NOTE | ~2024-08-30 | CT_ITS ---
CT abdomen pelvis w con Ordering provider: Sina Koenig MD History: 34 years Female with . Diarrhea x3 days w/ bloody stools . Comparison: None. Technique: CT abdomen and pelvis with IV and without oral contrast. Automated exposure control and it erative reconstruction technique were employed. The dose-length product was 281.97 mGy-cm. 100 ML Omn ipaque 350 was given IV. Findings: VISUALIZED LOWER CHEST: Normal. UPPER ABDOMINAL ORGANS: Liver: Normal. Gallbladder: Normal. Spleen: Normal. Stomach/duodenum: Normal. Pancreas: Normal. Adrenals: Normal. Kidneys: Normal. PELVIC ORGANS: The bladder is underfilled with thickened wall. Evaluation for cystitis advised. Retro verted uterus. Nabothian cysts are seen in the cervix. Right ovarian cyst measuring 7 mm. BOWEL AND MESENTERY: Colon: No evidence of diverticulitis. Thickened wall of the ascending and transverse colon suggestive of colitis. Surrounding fat stranding is seen in the right side. Inflammatory bowel disease should b e considered.. The appendix is not demonstrated. Small Bowel: Normal. No obstruction. Peritoneum/mesentery: No free air. Trace of free fluid seen adjacent to the cecum.. No mesenteric lym phadenopathy. RETROPERITONEUM: Normal aorta. No retroperitoneal lymphadenopathy. MUSCULOSKELETAL: Superficial soft tissues: The superficial soft tissues are normal. Bones: Normal spine. IMPRESSION: 1. No evidence of appendicitis, diverticulitis or intestinal obstruction. 2. Thickened wall of the ascending and transverse colon with surrounding fat stranding suggestive of colitis. Inflammatory bowel disease should be considered. 3. Trace of fluid is seen adjacent to the cecum. Reviewed, dictated and finalized at location A. IMPRESSION: 1. No evidence of appendicitis, diverticulitis or intestinal obstruction. 2. Thickened wall of the ascending and transverse colon with surrounding fat s tranding suggestive of colitis. Inflammatory bowel disease should be considered . 3. Trace of fluid is seen adjacent to the cecum.
--- OUTSIDE RECORDS SUMMARY | 2024-08-30 07:25 | XMS_ITS | Clinical Summary ---
Author Organization [facility] Address [address] [place] [address] Care Team Providers Care Wash House Supervisor Name Role Phone Anila Springer MD Primary Care Provider [phone] Elana Kwong [employer] Unavailable [phone]- [phone] Allergies No known active allergies Medications nitrofurantoin monohydrate (MACROBID) 100 mg capsule TAKE 1 CAPSULE BY MOUTH EVERY 12 HOURS FOR 7 DAYS 04/08/2022 Active Kariva, 28, 0.15-0.02 mgx21 /0.01 mg x 5 per tablet Take 1 tablet by mouth daily 05/23/2022 Active Active Problems Problem Noted Date Diagnosed Date Rectal bleeding 05/27/2022 Overview (05/27/2022): Added automatically from request for surgery [id number] Family history of colon cancer 05/27/2022 Overview (05/27/2022): Added automatically from request for surgery [id number] Iron deficiency anemia 05/27/2022 Overview (05/27/2022): Added automatically from request for surgery [id number] Chronic diarrhea 05/27/2022 Assessment & Plan (05/27/2022 1:55 PM CDT): Lower abdominal cramping with urgency and diarrhea 1-5 episodes of watery stool after eating usually about once a week, when traveling occurs more due to eating unpredictably. Saw chief crna and found no specific food triggers In [facility] a month ago couldn't leave [...] 05/10/2022 Assessment & Plan (01/28/2022 10:56 AM HOSPITAL SECURITY OFFICER): Acute problem, present times 1 week Physical [...] 05/11/19 Assessment & Plan (04/11/2019 4:36 PM HOSPITAL SECURITY OFFICER): Patient has small non-thrombosed hemorrhoid noted on [...] on file Legal Sex Female 11:13 AM HOSPITAL SECURITY OFFICER Gender Identity Not on file Sexual Orientation [...] 9:17 AM CDT Height 165.1 cm (5' 5) 05/30/2022 9:17 AM CDT Body Mass Index 23.3 05/30/2022 9:17 AM CDT Plan of Treatment Health Maintenance Due Date Last Done Comments Hepatitis C Screening 1990 Cervical Cancer Screening 02/11/20222020, 01/15/2018, 01/10/2017, Additional history exists Depression Screening 05/11/2023 05/10/2022, 12/20/19 20 Regular Well Visit/Exam 18-64 05/11/2023 05/10/2022, 04/16/2021, 02/11/2021, Additional history exists Covid-19 Vaccine ( season) 2023 02/03/2021, 05/31/2020, 05/10/2020 Influenza Vaccine (Season Ended) 2024 01/23/2022, 12/13/2016, 01/05/2015, Additional history exists DTaP/Tdap/Td Vaccine [...] REFLEX TO GENOTYPING Routine 02/11/2021 9:14 AM HOSPITAL SECURITY OFFICER from Last 3 Months or Most Recently Relevant to Health Maintenance Results * Pap and High Risk HPV, reflex to Genotyping (02/11/2021 9:14 AM HOSPITAL SECURITY OFFICER) Pap test 02/11/2021 9:14 AM HOSPITAL SECURITY OFFICER 02/11/2021 9:14 AM HOSPITAL SECURITY OFFICER Narrative 02/15/2021 4:46 PM HOSPITAL SECURITY OFFICER [facility] Department of Pathology [address] [place] [address] Final Report Note to Patients: This report [...] the details. Patient Name: SADIA BLACKMAN Address: [address] [place] [address] Gender: F : 1990 (Age: 30) Service: Laboratory Location: Lab [facility] #: [id number] Patient Type: Ref Lab Taken: 02/11/2021 Received: [...] determined by the Surgical Pathology Department at [facility] as part of an ongoing clinical quality assurance specialist program and in compliance with federally mandated [...] characteristics determined by the Surgical Pathology Department [facility]. It has not been cleared or approved by the [place]. Food and Drug Administration. Diane Allen NP LAB CYTOLOGY ORDERABLES F inal Result from Last 3 Months or Most Recently Relevant to Health Maintenance Insurance [facility] ACCESS CHOICE [facility]NA [facility] HMO Advance Directives For more information, please contact: [phone] Documents on File Type Date Recorded Patient Insurance Law Specialist Expl anation ADVANCE DIRECTIVE 05/10/2022 REVISED PO WER OF RECONCILIATION MACHINE OPERATOR-MEDICAL ADVANCE DIRECTIVE 04/26/2021 3:54 PM POWER OF RECONCILIATION MACHINE OPERATOR-MEDICAL ADVANCE DIRECTIVE 01/05/2015 POWER OF A TTORNEY-MEDICAL * Full Code (Latest Code Status on File) Date Activated Date Inactivated Comments 05/30/2022 9:25 AM 05/30/2022 3:11 PM * Full Code Date Activated Date Inactivated Comments 05/30/2022 9:25 AM 05/30/2022 9:25 AM Care Teams Wash House Supervisor Relationship Specialty Start Date End Date Anila Springer MD PCP - General 05/13/16 Elana Kwong NP Nurse Practitioner Nurse Practitioner 05/10/22
--- OUTSIDE RECORDS SUMMARY | 2024-08-30 07:25 | XMS_ITS | Data Portability ---
Author Organization [facility] Address [address] [place] [address] [place] [address] Care Team Providers Care Pari Mutuel Ticket Seller Name Role Phone MARLENE LAKE Primary Care Provider [phone] Assessment Encounter Date Assessment Date Assessment LastModified [...] recorded. Lab urinalysis, dipstick 2024 025 [email or web address] [facility], [address], [place], [address], 17:00:16 culture, urine 2024 025 [facility] (Lab), [address], [place], [address], 10:10:19 Referral urologist referral 2024 025 [facility], [address], [address], [place], [address], 14:45:09 Procedures None recorded. Surgeries None recorded. Imaging US, breast, bilateral, w/ axilla - left breast lump, axillary lumps come and go 2024 025 [email or web address] 1 [facility], [address], [place], [address], 5 16:06:56 Medication Orders nitrofurant oin monohydrate /macrocryst als 100 mg capsule 2024 025 MEGGAN [id number], [address] [facility] [address], [place], [address], 16:28:05 dicloxacill in 500 mg capsule 2023 024 [email or web address] [facility] [address] In [facility], [address], [place], [address], 16:34:29 Patient TargetsNo targets recorded. Patient InstructionsNo [...] t Abnor mal: No Resul ting Lab: [facility] [address] [facility] [address] Tel: CULTU RE ----- ----- ----- --- No Group B strep isola pennie at 2 days (vero ctive broth rekha coyle t) Not Available [facility] (Lab) [address], [place], [address], 08/21/2023 15:16:29 02/21/19 25 02/22/2024 CULTU RE: URINE result report SEE RESULT S BELOW abnormal Test: Cultu re: Urine Speci men Sourc e: Urine - Clean Catch Speci men Type: Urine Speci men Date: 025 1654 Resul t Date: 202406 Resul t Statu s: Final resul t Michell mal: Yes Casper gongora Lab: [facility] [address] [facility] [address] Tel: [phone] CULTU RE ----- ----- ----- --- 50,00 [...] ZOLE >2 ug/mL Resis tant Not Available [facility] (Lab) [address], [place], [address], 02/25/2024 10:10:19 02/21/19 25 02/22/2024 urina lysis , dipst ick Leukocytes ++ Not Available [facility] [address], [place], [address], 02/22/2024 16:45:02 02/21/19 25 02/22/2024 urina lysis , dipst ick Nitrite - Not Available [facility] [address], [place], [address], 02/22/2024 16:45:02 02/21/19 25 02/22/2024 urina lysis , dipst ick Urobilinogen - Not Available [facility] gretel [address], [place], [address], 02/22/2024 16:45:02 02/21/19 25 02/22/2024 urina lysis , dipst ick Protein trace Not Available [facility] [address], [place], [address], 02/22/2024 16:45:02 02/21/19 25 02/22/2024 urina lysis , dipst ick pH 8 Not Available [facility] [address], [place], [address], 02/22/2024 16:45:02 02/21/19 25 02/22/2024 urina lysis , dipst ick Blood ++ Not Available [facility] [address], [place], [address], 02/22/2024 16:45:02 02/21/19 25 02/22/2024 urina lysis , dipst ick Specific [place] 1.000 Not Available [facility] [address], [place], [address], 02/22/2024 16:45:02 02/21/19 25 02/22/2024 urina lysis , dipst ick Ketone - Not Available [facility] [address], [place], [address], 02/22/2024 16:45:02 02/21/19 25 02/22/2024 urina lysis , dipst ick Bilirubin - Not Available [facility] [address], [place], [address], 02/22/2024 16:45:02 02/21/19 25 02/22/2024 urina lysis , dipst ick Glucose - Not Available [facility] [address], [place], [address], 02/22/2024 16:45:02 02/21/19 25 02/22/2024 urina lysis , dipst ick Appearance cloudy Not Available [facility] [address], [place], [address], 02/22/2024 16:45:02 02/21/19 25 02/22/2024 urina lysis , dipst ick Color light yellow Not Available [facility] [address], [place], [address], 02/22/2024 16:45:02 04/10/19 25 04/10/2024 IMAGE GUIDE D PAP AND HPV REGAR DLESS image guided Pap, HPV regardless of Pap result SEE RESULT S BELOW CASE REPOR T: Cytol ogy Gynec ologi christiano Repor t Case: [id number] Autho albert berta Provi evan: Myra Durham NP Colle cted: 04/10 1735 Order ing Locat ion: [place] [facility] Recei garcia: 04/11 0843 First Scree n: Kenton martinez, [place] muniz, [place] Speci men: Timothy sosa Pap - Image d, Cervi x STATE MENT OF ADEQU ACY: Satis facto ry for evalu ation Trans forma tion zone compo nent prese nt ----- ----- ----- ----- ----- ----- ----- ----- ----- ----- ----- ----- ----- ----- ----- ----- ----- ---- FINAL DIAGN OSIS: Negat julio for Intra epith elial Lesio corby or Sandro vanessa (NIL) . Elect ana paula mandujano d by KATHI Reno ret on 025 at 0854 MANAGER FIELD ----- ----- ----- ----- ----- ----- ----- [...] as clini erika warra nted. Not Available [facility] (Lab) [address], [place], [address], 04/13/2024 09:59:45 08/25/19 24 08/25/2023 US, obste tric, follo w-up No observ ation record ed. [email or web address] [address], [facility], [place], [address], 08/25/2023 17:42:08 08/25/19 24 08/25/2023 US, obste tric, follo w-up No observ ation record ed. [facility] [address], [place], [address], 08/25/2023 17:33:32 03/22/19 25 03/22/2024 MAMMO , diagn ostic , bilat eral No observ ation record ed. [facility] [address], [place], [address], 03/25/2024 12:08:51 03/22/19 25 03/22/2024 MAMMO , diagn ostic , bilat eral No observ ation record ed. MEGGAN [facility] [address], [place], [address], 03/25/2024 12:08:51 Result Notes None recorded. Problems Name Problem SNOMED Code Status Onset Date Resolution Date Notes Provider Name and Address Organization Details Recorded Time RhD negative 416697694 Completed Rhogam @ 28ks - received 06/29/23 Liz omer [facility] 4 12:36:15 Rubella 43913003 Completed Non-Immu ne - MMR PP Liz omer [facility] 4 12:36:15 Gestatio nal diabetes mellitus 59915126 Completed BS QID and serial growth us Liz Quevedo [facility] 4 12:36:15 Pregnanc y 08817653 Completed 202309/08/2023 Dannie omer [facility] 4 11:47:35 Problem Notes None recorded. Procedures Surgical History Date Name Laterality Status Provider Name and Address Organization Details Recorded Time 04/10/19 25 Date of Last Pap Smear completed Liz Quevedo [facility] 04/10/2024 16:38:20 09/01/19 24 section completed Liz Quevedo [facility] 10/04/2023 14:13:15 06/14/19 23 Date of Last Colonoscopy completed Liz Quevedo [facility] 02/01/2023 14:43:03 06/14/19 23 Colonoscopy completed Liz Quevedo [facility] 02/01/2023 14:41:58 02/13/19 12 extraction of wisdom tooth completed Liz Quevedo [place] [facility] 02/01/2023 14:41:44 Imaging Results None recorded. Procedure Notes None recorded. Medical Equipment None [...] completed Not Available Not Available Not Available SooqiniTouch Ultra Test strips USE TO TEST BLOOD [...] Available Not Available Not Available amoxicillin 875 mg-potassiu m clavulanate 125 mg tablet TAKE 1 TABLET BY MOUTH TWICE A DAY FOR 10 DAYS 02/22 completed Not Available Not Available Not Available Kariva (28) 0.15 mg-0.02 mg (21)/0.01 mg (5) tablet TAKE 1 TABLET BY MOUTH EVERY DAY 02/01 completed Not Available Not Available Not Available nitrofurant oin monohydrate /macrocryst als 100 mg capsule Take 1 capsule every 12 hours by oral route for 7 days. 03/18 completed Not Available Not Available Not [...] Body mass index (BMI) Body weight Systolic And Diastolic Provider Name and Address Organization Details Last Updated DateTime 02/22/2024 165.1 cm 22.7 kg/m2 05361.72 g 107/73 mm[Hg] Laila Langeton [facility] 02/22/2024 16:44:33 Date Recorded Body height Body mass index (BMI) Body weight Systolic And Diastolic Provider Name and Address Organization Details Last Updated DateTime 03/18/2024 165.1 cm 22.5 kg/m2 49052.97 g 106/70 mm[Hg] SANCHEZ Cary [facility] 03/18/2024 16:27:33 Date Recorded Body height Body mass index (BMI) Body weight Systolic And Diastolic Provider Name and Address Organization Details Last Updated DateTime 04/10/2024 165.1 cm 22.6 kg/m2 55435.56 g 102/70 mm[Hg] Liz Quevedo [facility] 04/10/2024 16:38:09 Date Recorded Body height Body mass index (BMI) Body weight Systolic And Diastolic Provider Name and Address Organization Details Last Updated DateTime 09/12/2023 165.1 cm 25.4 kg/m2 12905.91 g 121/85 mm[Hg] Harriett Oropezakhoi [facility] 09/12/2023 14:12:44 Date Recorded Body height Body mass index (BMI) Body weight Systolic And Diastolic Provider Name and Address Organization Details Last Updated DateTime 10/04/2023 165.1 cm 24.8 kg/m2 27652.26 g 117/71 mm[Hg] Liz Emy [facility] 10/04/2023 14:11:24 Social History Question Answer Notes LastModified by Organizat ion Details LastModified Time Tobacco Smoking Status Never Smoker Dona Arias kan, [facility] 02/24/2023 15:53:43 If You Are , What Was Your Level Of Alcohol Consumption Prior To ? Occasional [email or web address] Information not available 02/24/2023 How Many Years Have You Consumed Alcohol? 12 Information not available 02/22/2022 Are You Blind Or Do You Have Difficulty Seeing? No Information n ot available 02/22/2022 What Is Your Level Of Caffeine Consumption? Occasional Information not available 02/22/2022 How Much Tobacco Do You Chew? None Information not available 02/22/2022 In The 14 Days Before Symptom Onset, Have You Had Close Contact With A Laboratory-confirm ed COVID-19 While That Case Was Ill? No Information n ot available 02/22/2022 In The 14 Days Before [...] Of Diet Are You Following? REGULAR Information n ot available 02/22/2022 What Is The Highest Grade Or Level Of School You Have Completed Or The Highest Degree You Have Received? [id number] Information not available 02/22/2022 Are There Any [...] IV Drugs? No Information not available 02/22/2022 Do You Have Difficulty Walking Or Climbing Stairs? No Information not available 02/24/2023 Sex: Unknown Functional Status Question Answer Note LastModified by Organizat ion Details LastModified Time Do you use any illicit or recreational drugs? No Information not available 02/22/2022 What is your level of alcohol consumption? Occasional [email or web address] Information not available 10/04/2023 Are you able to walk? YESWOREST Information not available 02/22/2022 Are you able to care for yourself? 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 No Information not available 02/24/2023 What is your exercise level? Moderate Information not available 02/22/2022 Mental Status Question Answer Note LastModified by Organization D etails LastModified Time Do you feel stressed (tense, restless, nervous, or anxious, or unable to sleep at night)? [id number] Information not available 02/22/2022 Family History Relationship Description Onset Age of this Age Resolved Age Notes LastModified by Organization Details LastModified Time Father No current problems or disability [email or web address] Not available 10:15:17 Mother No current problems or disability [email or web address] Not available 10:15:17 Medical History Condition Response Allergies (Food, seasonal, environmental ) N Other N Breast Cancer N Drug/Latex Allergies/Reactions N Blood Transfusion N Lung Disease N Dermatologic Disorders N Defects or Inherited Disease N Breast Problem N Gestational Diabetes N Hematologic disorders N Anesthesia Complications N History of STI N Deep Vein Thrombosis N Polycystic ovary syndrome N Anxiety Disorder N Autoimmune disease N Arthritis N Polyps N Infertility N History of abnormal pap N Acid Reflux (GERD) N Cancer N Varicosities N Stroke N Neurologic/Epilepsy N Endometriosis N High Cholesterol N Fibromyalgia N Headaches N Kidney Disease N Heart Problems N [...] Immunizations Vaccine Type Date Status Note Provider Nam e and Address Organization Details Recorded Time COVID-19, mRNA, LNP-S, PF, courtney-sucrose, 30 mcg/0.3 mL 02/11/2023 completed Liz Quevedo [place], [place] - [facility] 02/24/2023 17:24:57 Past Encounters Encounter ID Performer Location Encounter Start Date Encounter Closed Date Diagnosis/Indication Diagnosis SNOMED-CT Code Diagnosis ICD10 Code Diagnosis Note [id number] Elana Kwong [facility] [address] [address] 02/22/2022 09:47:52 02/22/2022 10:33:31 Gynecologic examination 76945052 Z01.419 Take Calcium with Vitamin D 1200mg [...] Screen na Dexa Screen na Routine Labs Stan pereyra to [facility] 10/2022 [facility] ion care management 194766298 Z30.9 [id number] Elana Kwong [facility] [address],[facility] [place] [address] 04/08/2022 14:17:06 04/08/2022 15:58:51 Urinary symptoms 372676173 R39.9 Medication reviewed & labs sent.will contact if any changes are required.Corby RODRIGUEZ VISIT [id number] Corey Chawla MD [facility] [address],[facility] [place] [address] 02/01/2023 13:48:21 02/01/2023 14:16:23 [id number] [facility] [address],[place] [address] 02/01/2023 13:48:46 02/01/2023 15:56:24 Amenorrhea 33348477 N91.2 Venereal d isease screening 653917484 Z11.3 [id number] Corey Chawla MD [facility] [address],[place] [address] 02/24/2023 15:53:28 02/24/2023 16:50:00 screening 908455137 Z36.82 Z3A.12 [id number] Myra Leija [facility] [address],[place] [address] 02/24/2023 15:54:07 02/24/2023 18:07:02 Gestation period, 12 weeks 28424641 Z3A.12 [id number] Myra Leija [facility] [address],[place] [address] 03/24/2023 15:57:55 03/27/2023 13:05:36 Routine care 590528088 Z34.92 [id number] Corey Chawla MD [facility] [address],[place] [address] 04/21/2023 15:54:49 04/21/2023 17:01:00 screening for malformation 690668740 Z36.3 Z3A.20 screening 2437 77555 Z36.3 [id number] Myra Leija [facility] [address],[place] [address] 04/21/2023 15:55:13 04/24/2023 09:47:54 Routine care 148335112 Z34.92 [id number] [facility] [address],[place] [address] 05/19/2023 16:29:07 05/22/2023 05:17:50 Routine care 849316268 Z34.92 [id number] Corey Chawla MD [facility] [address],[place] [address] 05/19/2023 16:29:27 05/19/2023 17:10:00 condition affecting obstetrical care of mother 438800936 O35.8XX0 Z3A.24 [id number] Corey Chawla MD [facility] [address],[place] [address] 06/28/2023 10:25:00 06/28/2023 11:00:21 Suspected abnormality affecting management of mother 3206387248 4434307 O35.8XX0 Z3A.29 [id number] Myra Leija [facility] [address],[place] [address] 06/28/2023 11:03:16 06/28/2023 11:54:36 Routine care 841249325 Z34.92 [id number] Corey Chawla MD [facility] [address],[place] [address] 07/14/2023 15:13:29 07/18/2023 14:55:02 Gestational diabetes mellitus 43641996 O24.410 Pt and here for diet teaching. [...] and pt verbalized understand ing. KVNG unger [id number] Myra Leija [facility] [address],[place] [address] 07/14/2023 16:08:55 07/14/2023 17:11:15 Routine care 635761167 Z34.92 [id number] Corey Chawla MD [facility] [address],[place] [address] 07/31/2023 17:24:54 08/01/2023 10:45:44 Routine care 544200837 Z34.03 [id number] Corey Chawla MD [facility] [address],[place] [address] 07/31/2023 18:14:29 08/01/2023 10:45:18 bradycardia 168493674 O36.8399 [id number] ADAN ASENCIO MD [facility] [address],[place] [address] 08/18/2023 10:57:38 08/18/2023 12:11:43 Gestational diabetes mellitus 28239685 O24.410 Gestation period, 37 weeks 75114146 Z3A.37 [id number] Corey Chawla MD [facility] [address],[place] [address] 08/25/2023 15:24:46 08/28/2023 09:01:47 Gestational diabetes mellitus 05092754 O24.410 Z3A.38 Pt and here for diet [...] and pt verbalized understand ing. KVNG unger [id number] [facility] [address],[place] [address] 08/25/2023 15:25:10 08/28/2023 09:01:31 Routine care 919723140 Z34.92 Breech presentation 6096 002 O32.1XX9 [id number] ADAN ASENCIO MD [facility] [address],[place] [address] 09/11/2023 11:27:44 09/11/2023 12:13:22 Candidiasis of vagina 21252686 B37.31 - reports hx of yeast infections , starting to have some irritation - diflucan sent, call if symptoms are not improved care 87261117 8 Z39.2 S/p c section on . Incision well-heale d without any signs of infection2 . RTC 4wks for post-partu m check [id number] ADAN ASENCIO MD [facility] [address],[place] [address] 09/12/2023 13:57:30 09/13/2023 11:12:30 Mastitis associated with 843711780 O91.23 - exam suspicious for left mastitis- discussed pumping regularly, ice packs and scheduled NSAIDS- patient to call if worsening or not improved in 48 hours [id number] Myra Leija [facility] [address],[place] [address] 10/04/2023 14:00:23 10/05/2023 09:44:33 care 120340490 Z39.2 normal pp visit f/u 6 month wweok to check hormone labs (HL-pCOS) after breastfeed ing [id number] Corey Chawla MD [facility] [address],[place] [address] 02/22/2024 16:30:11 02/22/2024 17:13:34 Urinary symptoms 197867760 R39.9 Patient presents with symptoms of UTI. Results of dipstick were positive for UTI.Advise d to drink clear fluids, Tylenol for pain and take prescribed medication s as instructed . Patient encouraged to follow up within 1 week if not improving. Recommende d urology referral to further discuss evaluation /managemen t of frequent UTIs and r/o other conditions such as interstiti al cystitis. Patient would like to move forward with urology referral. [id number] DARCIE Robertson [facility] [address] [address] 03/18/2024 16:08:24 03/19/2024 10:01:26 Breast lump 57995089 N63.0 order given for bilateral breast u/s with axillaenco uraged to schedulequ estions answeredpr ecautions discussed (notify office with any new symptoms such as redness/fe vers/flu-l jazmyne symptoms) Time spent in visit is a total of 20 mins with at least 50% of visit consisting of counseling and review of plan of care. Axillary lymphadenopathy 626910904 R59.0 [id number] Myra Leija CNM [facility] [address] [address] 04/10/2024 16:09:52 04/10/2024 17:13:12 Gynecologic examination 19453694 Z01.419 Health Concerns Section Related Observation LastModified by Organization Detai ls LastModified Time None Recorded Concern Status LastModified by Organization Details LastModified Time None Recorded Advance Directives Directive None Recorded Payers Insurance Date Sequence Insurance Name Policy Number Policy Rai Covered Member ID Rai Member ID Guarantor Name 06/28/2023 PAYMENT PLAN Cara Blackman 08/03/2023 PAYMENT PLAN Cara Blackman 08/18/2023 PAYMENT PLAN Cara Blackman 09/14/2023 PAYMENT PLAN Cara Blackman 01/30/2023 1 [employer] (POS II) [id number] Cara Blackman [id number] Cara Blackman 04/07/2024 1 [employer] [id number] Katherine Blackman [id number] Cara Blackman Notes Date Note Type [...] breakdown. ADAN ASENCIO MD [address], [place], [address], [facility] 09/12/2023 18:09:13 10/04/2023 text/html VisitReported bypatient.Quality:p [...] pumping Myra Leija CNM [address], [place], [address], [facility] 10/04/2023 17:30:14 02/22/2024 text/html Patient here [...] just finished Dicloxacillin for mastitis. Laila omer, [facility] 02/22/2024 17:27:45 03/18/2024 text/html 34yo [id number] for evaluation of left breast lumptreated for mastitis in Dec when first noticed lumpno longer experiencing redness/pain/fevers feels as if axilla are enlarged bilaterally at timesshe is exclusively pumping (about 4 times per day) neg pain/rednessneg n/v/fneg flu-like symptoms DARCIE Robertson [address], [place], [address], [facility] 03/19/2024 09:25:04 04/10/2024 text/html Annual GYNReport [...] well Myra Leija CNM [address], [place], [address], [facility] 04/10/2024 16:55:17 OBGyn Episode Ob Episode Information Episode Created Date Number of Fetuses Patient Bloodtype Patient rh Status Prepregnancy Weight lbs Domestic Partner Domestic Partner Phone Father Name Software Project Manager Status 02/24/19 24 1 O Negative 156 Hammad Blackman CLOSED Fetus Data First Name Last Name Admitted to NICU Weight (g) Sex Living Outcome Pediatric Complications Fetus ID Race Codes Race Delivery Type 3401.94 [place] [id number] Primary Problems Problem Notes pyelectasis rpt 4 weeks Problem Name Start Date End Date Resolution Snomed Code Not e RhD negative [id number] Rhogam @ 28wks - received 06/29/23 Rubella 80818034 Non-Immune - MMR PP Gestational diabetes mellitus 14100626 BS QID and seri al growth us [...] Date Ultra Sound Latest Days Gestation 0 [email or web address] 02/25/2023 09/08/19 24 0 Pre- Flowsheet Flowsheet Date 02/24/2023 Hill Score Blood Edema Fundus Height Fundus Units Glucose Ketones Leukocytes Nitrite Labor Signs Protein Cervic Dilation Cervic Effacement Cervic Station neg none none trace Type Weight in lbs Pre/Post Dialysis Refused Weight 158.442471116213 BP Diastolic BP Location Tested BP Systolic [...] Weight in lbs Pre/Post Dialysis Refused Weight 161.413374237949 BP Diastolic BP Location Tested BP Systolic [...] Weight in lbs Pre/Post Dialysis Refused Weight 163.205758027420 BP Diastolic BP Location Tested BP Systolic [...] Weight in lbs Pre/Post Dialysis Refused Weight 168.818139260711 BP Diastolic BP Location Tested BP Systolic BP Type 76 117 Fetus Heart Rate Present Fetus Movement A Yes Comments Patient states that having s ome back pain, discussed conveyor tender, labor, us reviewed efw 67% pyelectasis still [...] Weight in lbs Pre/Post Dialysis Refused Weight 171.164358911485 BP Diastolic BP Location Tested BP Systolic BP Type 73 111 Fetus Heart Rate Present Fetus Movement A Yes Comments Patient states that her hear t rate is elevated sometimes. bilateral pyelectasis resolved, breech, efw 71%, has a mahendra martinez , planning low intervention, unmedicated , +FM, [...] Weight in lbs Pre/Post Dialysis Refused Weight 170.834101171568 BP Diastolic BP Location Tested BP Systolic [...] Weight in lbs Pre/Post Dialysis Refused Weight 169.211290720997 BP Diastolic BP Location Tested BP Systolic BP Type 74 112 Fetus Heart Rate Present Fetus Movement Comments Flowsheet Date 07/31/2023 Hill Score Blood Edema Fundus Height Fundus Units Glucose Ketones Leukocytes Nitrite Labor Signs Protein Cervic Dilation Cervic Effacement Cervic Station neg none none trace Type Weight in lbs Pre/Post Dialysis Refused Weight 169.283203021259 BP Diastolic BP Location Tested BP Systolic [...] Weight in lbs Pre/Post Dialysis Refused Weight [id number] BP Diastolic BP Location Tested BP Systolic [...] Weight in lbs Pre/Post Dialysis Refused Weight [id number] BP Diastolic BP Location Tested BP Systolic [...] At Estimated Date of Delivery false Thalassemia (Lithuanian, Serbian, Mediterranean, Or Background): MCV < 80 false Neural Tube Defect (Meningom yelocele, Spina Bifida, Or Anencephaly) false Congenital Heart Defect false Down Syndrome false Duc-Sachs (eg, Bahai, Cajun, Chinese-Albanian) f alse Flavio Disease false Sickle Cell Disease Or Trait () false Hemophilia Or Other Blood Disorders false Muscular Dystrophy false Cystic Fibrosis false [place]'s Chorea false Intellectual Disability/Autism false If Yes, [...]
--- OUTSIDE RECORDS SUMMARY | 2024-08-30 07:25 | XMS_ITS | Referral Summary ---
Author Organization [facility] Address [address] [place] [address] Care Team Providers Care Supervisor Farm Equipment Maintenance Name Role Phone Anila Springer MD Primary Care Provider [phone]- [phone] Elana Kwong ADVERTISING TRAFFIC MANAGER Unavailable +1- [phone] Allergies No known active allergies Medications nitrofurantoin monohydrate (MACROBID) 100 mg capsule TAKE 1 CAPSULE BY MOUTH EVERY 12 HOURS FOR 7 DAYS 04/08/2022 Active Kariva, 28, 0.15-0.02 mgx21 /0.01 mg x 5 per tablet Take 1 tablet by mouth daily 05/23/2022 Active Active Problems Problem Noted Date Diagnosed Date Rectal bleeding 05/27/2022 Overview (05/27/2022): Added automatically from request for surgery [id number] Family history of colon cancer 05/27/2022 Overview (05/27/2022): Added automatically from request for surgery [id number] Iron deficiency anemia 05/27/2022 Overview (05/27/2022): Added automatically from request for surgery [id number] Chronic diarrhea 05/27/2022 Assessment & Plan (05/27/2022 1:55 PM CDT): Lower abdominal cramping with urgency and diarrhea 1-5 episodes of watery stool after eating usually about once a week, when traveling occurs more due to eating unpredictably. Saw software development test engineer and found no specific food triggers In [facility] a month ago couldn't leave restaurant because [...] 05/10/2022 Assessment & Plan (01/28/2022 10:56 AM BIZTALK CONSULTANT): Acute problem, present times 1 week Physical [...] 05/11/19 Assessment & Plan (04/11/2019 4:36 PM BIZTALK CONSULTANT): Patient has small non-thrombosed hemorrhoid noted on [...] on file Legal Sex Female 11:13 AM BIZTALK CONSULTANT Gender Identity Not on file Sexual Orientation [...] REFLEX TO GENOTYPING Routine 02/11/2021 9:14 AM BIZTALK CONSULTANT from Last 3 Months or Most Recently Relevant to Health Maintenance Results * Pap and High Risk HPV, reflex to Genotyping (02/11/2021 9:14 AM BIZTALK CONSULTANT) Pap test 02/11/2021 9:14 AM BIZTALK CONSULTANT 02/11/2021 9:14 AM BIZTALK CONSULTANT Narrative 02/15/2021 4:46 PM BIZTALK CONSULTANT [facility] Department of Pathology [address] [place], [place] [id number] Final Report Note to Patients: This report [...] the details. Patient Name: SADIA BLACKMAN Address: [address] [place] [address] Gender: F : 1990 (Age: 30) Service: Laboratory Location: [facility] #: [id number] Patient Type: Ref Lab Taken: 02/11/2021 Received: 02/11/2021 Accessioned:: 02/15/2021 Reported: 02/15/2021 Physician(s): DARCIE Jacinto WHNP Diagnosis: Source of Specimen: SCREENING THIN PREP IMAGED PAP w/ Reflex HPV Specimen Adequacy: - Satisfactory for evaluation; endocervical/transformation zone component present General Category: - Negative for intraepithelial lesion or malignancy Interpretation/Results: - Numerous RBC's Dahiana [place], CT(ASCP) Report Electronically Reviewed and Signed Out [...] determined by the Surgical Pathology Department at [facility] as part of an ongoing quality head program and in compliance with federally mandated [...] characteristics determined by the Surgical Pathology Department [facility]. It has not been cleared or approved by the U. S. Food and Drug Administration. Diane Allen NP LAB CYTOLOGY ORDERABLES F inal Result from Last 3 Months or Most Recently Relevant to Health Maintenance Insurance [employer] ACCESS CHOICE [facility] HMO Advance Directives For more information, please contact: [phone] Documents on File Type Date Recorded Patient Rivet Tosser Expl anation ADVANCE DIRECTIVE 05/10/2022 REVISED PO WER OF JUNIOR NETWORK ADMINISTRATOR-MEDICAL ADVANCE DIRECTIVE 04/26/2021 3:54 PM POWER OF JUNIOR NETWORK ADMINISTRATOR-MEDICAL ADVANCE DIRECTIVE 01/05/2015 POWER OF A TTORNEY-MEDICAL * Full Code (Latest Code Status on File) Date Activated Date Inactivated Comments 05/30/2022 9:25 AM 05/30/2022 3:11 PM * Full Code Date Activated Date Inactivated Comments 05/30/2022 9:25 AM 05/30/2022 9:25 AM Care Teams Supervisor Farm Equipment Maintenance Relationship Specialty Start Date End Date Anila Springer MD PCP - General 05/13/16 Elana Kwong NP Nurse Practitioner Nurse Practitioner 05/10/22
[2024-08-30 07:26] VITALS: BP 116/83; PULSE 64; RESP 16; TEMP 36.4; O2SAT 100
[2024-08-30 07:43] LABS: BEDSIDEPREGUCG Negative (Negative)
[2024-08-30 07:50] LABS: Hematocrit 45.4 % (37.0-47.0); Hemoglobin 14.8 g/dL (12.0-15.0); Immature Granulocyte Percent A 0.4 % (0-0.5); Lymphocytes Absolute Auto 1.30 K/mm3 (0.9-3.2); Mean Corpuscular HGB Conc 32.6 g/dl (32-36); Mean Corpuscular Hemoglobin 28.7 pg (26-34); Mean Corpuscular Volume 88.0 fl (80-100); Nucleated Red Blood Cells Absolute Auto 0.000 K/mm3 (0.0-0.012); Nucleated Red Blood Cells Perc 0.0 % (0.0-0.2); Platelet Count Result 209 k/mm3 (150-375); Red Blood Count 5.16 M/mm3 (4.2-5.4); White Blood Count 10.1 K/mm3 (4.5-10.0)
[2024-08-30 07:52] LABS: Add Urine Microscopic? NO; Appearance Urine Clear (Clear); Glucose Urine UA Negative (Negative); Leukocyte Esterase Ur Negative LEU/UL (Negative); Nitrate Urine Negative (Negative); Specific Grav Ur 1.021 (1.001-1.035)
--- NOTE | 2024-08-30 07:54 | ED_ITS ---
HPI - General Adult General Chief complaint: Abdominal Pain Stated complaint: diarrhea, abdominal cramping, blood in stool Time Seen by Provider: 08/30/24 07:27 History of Present Illness HPI narrative: This is a 34-year-old female ED with chief complaint of abdominal pain and bloody diarrhea. Patient was at [facility] several days ago. When she returned she developed multiple episodes watery diarrhea and abdominal cramping. The diarrhea then turned bloody with blood mixed into the stool. She developed nausea earlier today. She has not had any fevers chills chest pain difficulty breathing or urinary symptoms. No on else is sick with similar symptoms. Related Data Home Medications ?Medication ?Instructions ?Recorded ?Confirmed ?Last Taken ?Type prenat.vits,fabi,sma-uyzm-tkcbb 1 tablet 08/18/23 08/30/23 History Juan M Inosotol 2,000 mg BYMOUTH DAILY 05/22/24 Unknown History Allergies Allergy/AdvReac Type Severity Reaction Status Date / Time No Known Allergies Allergy Verified 08/30/24 07:23 [facility] Past Medical History Medical History (Updated 08/30/24 @ 09:12 by Sina Koenig MD) Post-op pain delivery indicated due to breech presentation Gestational diabetes Surgical History Surgical History H/O: H/O colonoscopy Family History Family History Grandparent Diabetes mellitus Heart problem Other Patient denies significant medical history Social History Social History Smoking status: Never smoker Substance use: never Do You Feel Safe in your Home?: Yes Lack of Transportation: No Lack of Food: Never True Current Housing: I Have Housing Concerned About Future Housing: No Difficulty Paying Gas/Electric Bills: No Difficulty Paying for Meds: No Currently Unemployed: No Education: Master's Degree or Higher Difficulty w/ Childcare or Family Care: No Spiritual care concerns: No Exam 2 Narrative: APPEARANCE: No apparent distress. Head: atraumatic. EYES: EOMI, NOSE: Atraumatic NECK: Trachea midline RESPIRATORY: No increased rate of breathing, CTAB CARDIOVASCULAR: RRR, ABDOMINAL: Soft nontender guarding or rebound Rectal exam: Patient declined MUSCULOSKELETAl: No obvious deformities NEURO: Alert. Moving 4/4 extremities SKIN:: Warm, dry. Normal color PSYCHIATRIC: Normal affect Course Vital Signs Vital signs: Vital Signs Temperature 97.5 F L 08/30/24 07:26 Pulse Rate 64 08/30/24 07:26 Respiratory Rate 16 08/30/24 07:26 Blood Pressure 116/83 08/30/24 07:26 Pulse Oximetry 100 08/30/24 07:26 Oxygen Delivery Room Air 08/30/24 07:26 Temperature 97.5 F L 08/30/24 07:26 Pulse Rate 64 08/30/24 07:26 Respiratory Rate 16 08/30/24 07:26 Blood Pressure 116/83 08/30/24 07:26 Pulse Oximetry 100 08/30/24 07:26 Oxygen Delivery Room Air 08/30/24 07:26 Medical Decision Making MDM Narrative Medical decision making narrative: -Course: 34-year-old female presenting 3 days of abdominal cramping bloody diarrhea. Abdominal exam is benign. Vital signs are stable. She is well appearing overall. Rectal exam was declined. CT abdomen pelvis showed inflammation of ascending and transverse colon. Rest of laboratory studies within normal limits. I discussed the results with the patient. Turns out she has had episodes of bloody diarrhea in the past which raises the question of possible inflammatory bowel disease. Stool studies have been ordered. Patient will follow-up outpatient with GI. On re-evaluation patient is resting comfortably in bed. Her pain is resolved. Her vital signs are still stable and she is in a benign abdominal exam. Patient discharged on short course of Cipro and given supportive care medications. Given return precautions. -DDX includes but is not limited to: Infectious colitis, inflammatory colitis, hemorrhoids, diverticular disease -Co-morbidities complicating care: None -Social determinants of health: Drinks alcohol occasionally, denies use drugs or tobacco Vital Signs Vital Signs: Vital Signs Temperature 97.5 F L 08/30/24 07:26 Pulse Rate 64 08/30/24 07:26 Respiratory Rate 16 08/30/24 07:26 Blood Pressure 116/83 08/30/24 07:26 Pulse Oximetry 100 08/30/24 07:26 Oxygen Delivery Room Air 08/30/24 07:26 Temperature 97.5 F L 08/30/24 07:26 Pulse Rate 64 08/30/24 07:26 Respiratory Rate 16 08/30/24 07:26 Blood Pressure 116/83 08/30/24 07:26 Pulse Oximetry 100 08/30/24 07:26 Oxygen Delivery Room Air 08/30/24 07:26 Lab Data 08/30/24 07:42 08/30/24 07:42 Labs: Lab Results 08/30/24 08/30/24 Range/Units 07:40 07:42 WBC 10.1 H (4.5-10.0) K/mm3 RBC 5.16 (4.2-5.4) M/mm3 Hgb 14.8 D (12.0-15.0) g/dL Hct 45.4 (37.0-47.0) % MCV 88.0 (80-100) fl MCH 28.7 (26-34) pg MCHC 32.6 (32-36) g/dl RDW 11.9 (11.5-14.5) % Plt Count 209 D (150-375) k/mm3 MPV 9.6 (7.4-10.4) fl Immature Gran % (Auto) 0.4 (0-0.5) % Neut % (Auto) 81.0 H (45.5-73.1) % Lymph % (Auto) 12.9 L (18.3-44.2) % Ferry % (Auto) 5.0 (2.6-8.5) % Eos % (Auto) 0.5 (0-4.4) % Baso % (Auto) 0.2 (0.2-1.2) % Lymph # (Auto) 1.30 (0.9-3.2) K/mm3 Ferry # (Auto) 0.5 (0.1-0.6) K/mm3 Eos # (Auto) 0.1 (0-0.3) K/mm3 Baso # (Auto) 0.0 (0.0-0.1) K/mm3 Abs Immat Gran (auto) 0.04 H (0.00-0.031) K/mm3 Absolute Neuts (auto) 8.2 H (1.3-6.7) K/mm3 Absolute Nucleated RBC 0.000 (0.0-0.012) K/mm3 Nucleated RBC % 0.0 (0.0-0.2) % Sodium 137 (137-145) mmol/L Potassium 4.1 (3.4-5.0) mmol/L Chloride 104 (98-107) mmol/L Carbon Dioxide 24 (22-30) mmol/L Anion Gap 9 (4-12) mmol/L BUN 9 (7-17) mg/dL Creatinine 0.76 (0.7-1.0) mg/dL Estim Creat Clear Calc 83 ml/min Estimated GFR > 60 (59 - ) Glucose 96 (65-110) mg/dL Calcium 9.1 (8.4-10.2) mg/dL Total Bilirubin 0.7 (0.2-1.3) mg/dL AST 27 (14-36) U/L ALT 15 (6-35) U/L Alkaline Phosphatase 63 (38-126) U/L Total Protein 7.2 (6.3-8.2) g/dL Albumin 4.2 (3.5-5.1) g/dL Lipase 65 (23-300) U/L Urine Color Yellow (Yellow) Urine Appearance Clear (Clear) Urine pH 8.0 (5.0-9.0) Ur Specific [place] 1.021 (1.001-1.035) Urine Protein Negative (Negative) mg/dL Urine Glucose (UA) Negative (Negative) mg/dL Urine Ketones Negative (Negative) mg/dL Ur Blood (Man) Negative (Negative) Urine Nitrate Negative (Negative) Urine Bilirubin Negative (Negative) Urine Urobilinogen 0.2 (<2.0) mg/dL Leukocyte Esterase Rfl Negative (Negative) DONAVON/UL POC Urine HCG, Qual Negative (Negative) Discharge Plan Discharge Clinical Impression: Bloody diarrhea Patient Disposition: Home Condition: Stable Instructions: Antibiotic Form, Colitis (ED) Additional Instructions: You were seen in the emergency department with episode bloody diarrhea. Please follow-up with the GI physician listed below. Please complete a course of antibiotics. If you develop severe abdominal pain,worsening bloody diarrhea, or feel your condition is getting worse please return to the ED for re- evaluation. Patient Language: Arabic Prescriptions: New ciprofloxacin HCl [Cipro] 500 mg tablet 500 mg PO Q12H 5 Days Qty: 10 0RF dicyclomine 20 mg tablet 20 mg PO BID Qty: 30 0RF acetaminophen 500 mg tablet 1,000 mg PO TID PRN (Reason: gissell) 7 Days Qty: 42 0RF ibuprofen 800 mg tablet 800 mg PO TID PRN (Reason: pain) 7 Days Qty: 21 0RF No Action Juan M Inosotol 2,000 mg BYMOUTH DAILY prenat.vits,fabi,gqo-nelo-faplu Tablet 1 tablet Follow-up/Referrals: Christy Rhoades APRN [Primary Care Provider] - Silas Santos MD [Physician] - 1 Week (recurrent blood diarrhea)
[2024-08-30 08:01] VITALS: BP 112/83; PULSE 70; RESP 16; TEMP 36.6; O2SAT 97
[2024-08-30 08:10] LABS: Alanine Aminotransferase 15 U/L (6-35); Albumin Level 4.2 g/dL (3.5-5.1); Alkaline Phosphatase 63 U/L (38-126); Anion Gap 9 mmol/L (4-12); Aspartate Amino Transferase 27 U/L (14-36); Bilirubin,Total 0.7 mg/dL (0.2-1.3); Blood Urea Nitrogen 9 mg/dL (7-17); Calcium 9.1 mg/dL (8.4-10.2); Carbon Dioxide 24 mmol/L (22-30); Chloride 104 mmol/L (98-107); Estimated CRCL calculation 83 ml/min; Estimated Glomerular Filt Rate > 60; Glucose 96 mg/dL (65-110); Lipase 65 U/L (23-300); Potassium 4.1 mmol/L (3.4-5.0); Sodium 137 mmol/L (137-145); Total Protein 7.2 g/dL (6.3-8.2)
[2024-08-30] MEDS: DICYCLOMINE HCL 10 MG CAPSULE 20 MG PO (08:22)
[2024-08-30] MEDS: LACTATED RINGERS 1,000 ML 999 ML IV CONT (08:24)
[2024-08-30] MEDS: KETOROLAC 15 MG/ML VIAL (*BKC) IV PUSH (08:24)
[2024-08-30 08:25] VITALS: BP 107/76
[2024-08-30 08:47] VITALS: BP 107/63; PULSE 74; RESP 16; O2SAT 98
[2024-08-30 09:01] VITALS: BP 110/79; PULSE 70; RESP 16; TEMP 36.6; O2SAT 98
[2024-08-30 10:33] LABS: Toxigenic C. Diff NEGATIVE (NEGATIVE)
== END 2024-08-30 09:38 | disposition home or self-care (01) ==
PROVIDERS: Emergency Provider Emergency Medicine; PCP Nurse Practitioner Family
DX: K92.1 Melena (principal)
CPT/HCPCS: 36415; 74177; 80053; 81003; 81025; 83690; 85025; 87493; 96361; 96374; 99284; A9270; J1885; J7120; Q9967

== ENCOUNTER 2024-09-30 08:25 | Emergency (ER) | payer OTHER, SELFPAY ==
[2024-09-30 08:35] VITALS: BP 103/71; PULSE 72; RESP 16; TEMP 36.2; O2SAT 100
--- OUTSIDE RECORDS SUMMARY | 2024-09-30 08:37 | XMS_ITS | Clinical Summary ---
Author Organization [facility] Address [address] [place] [address] Care Team Providers Care Procurement Forester Name Role Phone Anila Springer MD Primary Care Provider [phone]- [phone] Elana Kwong SENIOR ANALYST MARKET INTELLIGENCE Unavailable +1- [phone] Allergies No known active allergies Medications nitrofurantoin monohydrate (MACROBID) 100 mg capsule TAKE 1 CAPSULE BY MOUTH EVERY 12 HOURS FOR 7 DAYS 04/08/2022 Active Kariva, 28, 0.15-0.02 mgx21 /0.01 mg x 5 per tablet Take 1 tablet by mouth daily 05/23/2022 Active Active Problems Problem Noted Date Diagnosed Date Rectal bleeding 05/27/2022 Overview (05/27/2022): Added automatically from request for surgery [id number] Family history of colon cancer 05/27/2022 Overview (05/27/2022): Added automatically from request for surgery [id number] Iron deficiency anemia 05/27/2022 Overview (05/27/2022): Added automatically from request for surgery [id number] Chronic diarrhea 05/27/2022 Assessment & Plan (05/27/2022 1:55 PM CDT): Lower abdominal cramping with urgency and diarrhea 1-5 episodes of watery stool after eating usually about once a week, when traveling occurs more due to eating unpredictably. Saw insulation foreman and found no specific food triggers In [facility] a month ago couldn't leave [...] 05/10/2022 Assessment & Plan (01/28/2022 10:56 AM CARD GRINDER HELPER): Acute problem, present times 1 week Physical [...] 05/11/19 Assessment & Plan (04/11/2019 4:36 PM CARD GRINDER HELPER): Patient has small non-thrombosed hemorrhoid noted on [...] on file Legal Sex Female 11:13 AM CARD GRINDER HELPER Gender Identity Not on file Sexual Orientation [...] 2023 02/03/2021, 05/31/2020, 05/10/2020 Influenza Vaccine (#1) 2024 , 12/13/2016, 01/05/2015, Additional history exists DTaP/Tdap/Td [...] REFLEX TO GENOTYPING Routine 02/11/2021 9:14 AM CARD GRINDER HELPER from Last 3 Months or Most Recently Relevant to Health Maintenance Results * Pap and High Risk HPV, reflex to Genotyping (02/11/2021 9:14 AM CARD GRINDER HELPER) Pap test 02/11/2021 9:14 AM CARD GRINDER HELPER 02/11/2021 9:14 AM CARD GRINDER HELPER Narrative 02/15/2021 4:46 PM CARD GRINDER HELPER [facility] Department of Pathology [address] [place] [address] Final Report Note to Patients: This report [...] the details. Patient Name: SADIA BLACKMAN Address: [address] [place] [address] Gender: F : 1990 (Age: 30) Service: Laboratory Location: [facility] #: [id number] Patient Type: Ref Lab Taken: 02/11/2021 Received: [...] determined by the Surgical Pathology Department at [facility] as part of an ongoing quality assurance lab technician program and in compliance with federally mandated [...] characteristics determined by the Surgical Pathology Department [facility]. It has not been cleared or approved by the U. S. Food and Drug Administration. Diane Allen NP LAB CYTOLOGY ORDERABLES F inal Result from Last 3 Months or Most Recently Relevant to Health Maintenance Insurance [facility] ACCESS CHOICE [facility] HMO Advance Directives For more information, please contact: [phone] Documents on File Type Date Recorded Patient Kayaking Instructor Expl anation ADVANCE DIRECTIVE 05/10/2022 REVISED PO WER OF HYDROGEN OPERATOR-MEDICAL ADVANCE DIRECTIVE 04/26/2021 3:54 PM POWER OF HYDROGEN OPERATOR-MEDICAL ADVANCE DIRECTIVE 01/05/2015 POWER OF A TTORNEY-MEDICAL * Full Code (Latest Code Status on File) Date Activated Date Inactivated Comments 05/30/2022 9:25 AM 05/30/2022 3:11 PM * Full Code Date Activated Date Inactivated Comments 05/30/2022 9:25 AM 05/30/2022 9:25 AM Care Teams Procurement Forester Relationship Specialty Start Date End Date Anila Springer MD PCP - General 05/13/16 Elana Kwong NP Nurse Practitioner Nurse Practitioner 05/10/22
--- NOTE | 2024-09-30 09:01 | ED_ITS ---
HPI - Female Genitourinary General Chief complaint: Urogenital-Female Stated complaint: UTI Time Seen by Provider: 09/30/24 08:50 Source: patient and RN notes reviewed Mode of arrival: ambulatory Limitations: no limitations History of Present Illness HPI Narrative: Patient presents today complaining of 3 day history of dysuria, malodorous and cloudy urine. Symptoms worsened over the last 2 days. She also reports some slight lower abdominal pressure. Denies fever. Reports history of frequent UTIs and is under the care of a urologist. She has been taking some azo for the last couple of days as well. She was recently on some Cipro for colitis last month. Related Data Home Medications ?Medication ?Instructions ?Recorded ?Confirmed ?Last Taken ?Type Juan M Inosotol 2,000 mg BYMOUTH DAILY 05/22/24 09/24/24 Unknown History Allergies Allergy/AdvReac Type Severity Reaction Status Date / Time No Known Allergies Allergy Verified 09/30/24 08:27 [facility] Past Medical History Medical History Post-op pain delivery indicated due to breech presentation Gestational diabetes Surgical History Surgical History H/O: H/O colonoscopy Family History Family History Grandparent Diabetes mellitus Heart problem Other Patient denies significant medical history Social History Social History Smoking status: Never smoker Substance use: never Do You Feel Safe in your Home?: Yes Lack of Transportation: No Lack of Food: Never True Current Housing: I Have Housing Concerned About Future Housing: No Difficulty Paying Gas/Electric Bills: No Difficulty Paying for Meds: No Currently Unemployed: No Education: Master's Degree or Higher Difficulty w/ Childcare or Family Care: No Spiritual care concerns: No Comments At time of signature, I have reviewed and agree with nursing past medical, surgical, social and family history unless otherwise noted. Please see nursing chart for further information. There is no relevant family history pertinent to the presenting complaint Exam Narrative: GENERAL: Well-appearing, well-nourished, and in no acute distress. HEAD: Normocephalic, atraumatic. EYES: EOMI. No redness or drainage. Conjunctivae normal. ENT: Mucous membranes pink and moist. NECK: Normal AROM. CHEST: No respiratory distress. Clear to auscultation. HEART: Regular rate and rhythm. No murmur appreciated. ABDOMEN: Soft, nondistended, normal active bowel sounds.+ mild suprapubic pressure EXTREMITIES: Normal range of motion. No edema. SKIN: Warm, dry, no rash. Capillary refill normal. Normal skin turgor. NEURO: No focal deficits. Alert and oriented x3. Gait steady. PSYCH: Normal affect. No signs of depression or anxiety. Course Course Level of Care: Express Care Visit Vital Signs Vital signs: Vital Signs Temperature 97.1 F L 09/30/24 08:35 Pulse Rate 72 09/30/24 08:35 Respiratory Rate 16 09/30/24 08:35 Blood Pressure 103/71 09/30/24 08:35 Pulse Oximetry 100 09/30/24 08:35 Oxygen Delivery Room Air 09/30/24 08:35 Temperature 97.1 F L 09/30/24 08:35 Pulse Rate 72 09/30/24 08:35 Respiratory Rate 16 09/30/24 08:35 Blood Pressure 103/71 09/30/24 08:35 Pulse Oximetry 100 09/30/24 08:35 Oxygen Delivery Room Air 09/30/24 08:35 Review MDM - Female Genitourinary MDM Narrative Medical decision making narrative: 34-year-old female patient presents today with a 3 day history of dysuria, malodorous and cloudy urine, and slight abdominal pressure. History of frequent UTI. She has been taking azo the last couple of days with some mild improvement. Unable to run a urinalysis here today due to the azo turning her urine bright orange. Culture pending. Will start patient on Keflex for presumptive UTI based on symptoms and history. Vital signs stable. ED precautions given. Patient agrees with plan. Differential Diagnosis Differential diagnosis: Likely urinary tract infection, vaginitis and cystitis Critical Care Time Critical Care Time Critical Care Time: No Discharge Plan Discharge Clinical Impression: UTI symptoms Patient Disposition: Home Condition: Stable Instructions: Antibiotic Form, Urinary Tract Infection in Women (DC) Additional Instructions: Please take the Keflex as prescribed until gone. You will be notified by telephone if your urine culture shows that your antibiotics need to be changed. Follow-up with your PCP or urologist with any additional concerns. Go to the ER if symptoms worsen to include fever greater than 100.3, severe abdominal or back pain, sweats or chills, nausea or vomiting. Patient Language: [place]ian Prescriptions: New cephalexin 500 mg capsule 500 mg PO Q6H 7 Days Qty: 28 0RF No Action Juan M Inosotol 2,000 mg BYMOUTH DAILY ibuprofen 800 mg tablet 800 mg PO TID PRN (Reason: pain) 7 Days Qty: 21 0RF Follow-up/Referrals: Christy Rhoades APRN [Primary Care Provider] - Time of Disposition: 08:59
== END 2024-09-30 09:05 | disposition home or self-care (01) ==
PROVIDERS: Emergency Provider Nurse Practitioner; PCP Nurse Practitioner Family
DX: R30.0 Dysuria (principal); R82.998 Other abnormal findings in urine
CPT/HCPCS: 87086; 99213; G0463

== ENCOUNTER 2024-12-11 01:30 | Day surgery (SDC) | payer OTHER, SELFPAY ==
[2024-11-13 13:14] VITALS: BMI 22.6
--- NOTE | 2024-11-29 15:28 | SUR.PREOP ---
Confirmed with patient new date and time of EGD and Colonoscopy. At this time patient did not have any questions and stated she had not had any changes to her medical hx or medications.
--- OUTSIDE RECORDS SUMMARY | 2024-12-11 01:33 | XMS_ITS | Data Portability ---
Author Organization [facility] Address [address] [place] [address] Care Team Providers Care Lead Clinical Research Coordinator Name Role Phone MARLENE LAKE Primary Care Provider Assessment Encounter Date Assessment Date Assessment LastModified [...] recorded. Lab urinalysis, dipstick 2024 025 [email or web address] [facility], [address], [place], [address], 17:00:16 culture, urine [address] [facility] (Lab), [address], [place], [address], 10:10:19 Referral urologist referral 2024 025 [email or web address] [facility], [address], [place], [address], 14:45:09 Procedures None recorded. Surgeries None recorded. Imaging US, breast, bilateral, w/ axilla - left breast lump, axillary lumps come and go 2024 025 [email or web address] 1 [facility], [address], [place], [address], 5 16:06:56 Medication Orders nitrofurant oin monohydrate /macrocryst als 100 mg capsule 2024 025 MEGGAN [facility] #[id number], [address], [place], [address], 16:28:05 dicloxacill in 500 mg capsule 2023 024 [email or web address] [facility] [id number] In [facility], [address], [place], [address], 16:34:29 Patient TargetsNo targets recorded. Patient InstructionsNo [...] Resul ting Lab: [facility] [address] [facility] [address] Tel: CULTU RE ----- ----- ----- --- No Group B strep isola pennie at 2 days (vero ctive broth rekha coyle t) Not Available [facility] (Lab) [address], [place], [address], 08/21/2023 15:16:29 02/21/19 25 02/22/2024 CULTU RE: URINE result report SEE RESULT S BELOW abnormal Test: Cultu re: Urine Speci men Sourc e: Urine - Clean Catch Speci men Type: Urine Speci men Date: 025 1654 Resul t Date: 202406 Resul t Statu s: Final resul t Michell mal: Yes Casper gongora Lab: [facility] [address] [facility] [address] Tel: [phone] CULTU RE ----- [...] ZOLE >2 ug/mL Resis tant Not Available [facility] (Lab) [address], [place], [address], 02/25/2024 10:10:19 02/21/19 25 02/22/2024 urina lysis , dipst ick Leukocytes ++ Not Available [facility] [address], [place], [address], 02/22/2024 16:45:02 02/21/19 25 02/22/2024 urina lysis , dipst ick Nitrite - Not Available [facility] [address], [place], [address], 02/22/2024 16:45:02 02/21/19 25 02/22/2024 urina lysis , dipst ick Urobilinogen - Not Available [facility] gretel [address], [place], [address], 02/22/2024 16:45:02 02/21/19 25 02/22/2024 urina lysis , dipst ick Protein trace Not Available [facility] [address], [place], [address], 02/22/2024 16:45:02 02/21/19 25 02/22/2024 urina lysis , dipst ick pH 8 Not Available [facility] [address], [place], [address], 02/22/2024 16:45:02 02/21/19 25 02/22/2024 urina lysis , dipst ick Blood ++ Not Available [facility] [address], [place], [address], 02/22/2024 16:45:02 02/21/19 25 02/22/2024 urina lysis , dipst ick Specific [place] 1.000 Not Available [facility] rohan [address], [place], [address], 02/22/2024 16:45:02 02/21/19 25 02/22/2024 urina lysis , dipst ick Ketone - Not Available [facility] [address], [place], [address], 02/22/2024 16:45:02 02/21/19 25 02/22/2024 urina lysis , dipst ick Bilirubin - Not Available [facility] [address], [place], [address], 02/22/2024 16:45:02 02/21/19 25 02/22/2024 urina lysis , dipst ick Glucose - Not Available [facility] [address], [place], [address], 02/22/2024 16:45:02 02/21/19 25 02/22/2024 urina lysis , dipst ick Appearance cloudy Not Available [facility] [address], [place], [address], 02/22/2024 16:45:02 02/21/19 25 02/22/2024 urina lysis , dipst ick Color light yellow Not Available [facility] [address], [place], [address], 02/22/2024 16:45:02 04/10/19 25 04/10/2024 IMAGE GUIDE [...] KATHI Reno ret on 025 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 Not Available [facility] (Lab) [address], [place], [address], 04/13/2024 09:59:45 08/25/19 24 08/25/2023 US, obste tric, follo w-up No observ ation record ed. [email or web address] [address] [facility], [place], [address], 08/25/2023 17:42:08 08/25/19 24 08/25/2023 US, obste tric, follo w-up No observ ation record ed. [facility] [address], [place], [address], 08/25/2023 17:33:32 03/22/19 25 03/22/2024 MAMMO , diagn ostic , bilat eral No observ ation record ed. [facility] [address], [place], [address], 03/25/2024 12:08:51 03/22/19 25 03/22/2024 MAMMO , diagn ostic , bilat eral No observ ation record ed. MEGGAN [facility] ([facility]) [facility] [address], [place], [address], 03/25/2024 12:08:51 Result Notes None recorded. Problems Name Problem SNOMED Code Status Onset Date Resolution Date Notes Provider Name and Address Organization Details Recorded Time RhD negative 998114584 Completed Rhogam @ 28ks - received 06/29/23 Liz omer [facility] 4 12:36:15 Rubella 12536334 Completed Non-Immu ne - MMR PP Liz omer [facility] 4 12:36:15 Gestatio nal diabetes mellitus 70168578 Completed BS QID and serial growth us Liz Quevedo [facility] 4 12:36:15 Pregnanc y 71138332 Completed 202309/08/2023 Dannie omer [facility] 4 11:47:35 Problem Notes None recorded. Procedures Surgical History Date Name Laterality Status Provider Name and Address Organization Details Recorded Time 04/10/19 25 Date of Last Pap Smear completed Liz Quevedo [facility] 04/10/2024 16:38:20 09/01/19 24 section completed Liz Quevedo [facility] 10/04/2023 14:13:15 06/14/19 23 Date of Last Colonoscopy completed Liz Quevedo [facility] 02/01/2023 14:43:03 06/14/19 23 Colonoscopy completed Liz Quevedo [facility] 02/01/2023 14:41:58 02/13/19 12 extraction of wisdom tooth completed Liz Quevedo [place] [facility] 02/01/2023 14:41:44 Imaging Results None recorded. [...] completed Not Available Not Available Not Available ParkoTouch Ultra Test strips USE TO TEST BLOOD [...] Updated DateTime 02/22/2024 165.1 cm 22.7 kg/m2 69214.72 g 107/73 mm[Hg] Laila Langeton [facility] 02/22/2024 16:44:33 Date Recorded Body height Body mass index (BMI) Body weight Systolic And Diastolic Provider Name and Address Organization Details Last Updated DateTime 03/18/2024 165.1 cm 22.5 kg/m2 65232.97 g 106/70 mm[Hg] SANCHEZ Cary [facility] 03/18/2024 16:27:33 Date Recorded Body height Body mass index (BMI) Body weight Systolic And Diastolic Provider Name and Address Organization Details Last Updated DateTime 04/10/2024 165.1 cm 22.6 kg/m2 09387.56 g 102/70 mm[Hg] Liz Quevedo [facility] 04/10/2024 16:38:09 Date Recorded Body height Body mass index (BMI) Body weight Systolic And Diastolic Provider Name and Address Organization Details Last Updated DateTime 09/12/2023 165.1 cm 25.4 kg/m2 68292.91 g 121/85 mm[Hg] Harriett Oropezakhoi [facility] 09/12/2023 14:12:44 Date Recorded Body height Body mass index (BMI) Body weight Systolic And Diastolic Provider Name and Address Organization Details Last Updated DateTime 10/04/2023 165.1 cm 24.8 kg/m2 47156.26 g 117/71 mm[Hg] Liz Emy [facility] 10/04/2023 14:11:24 Social History Question Answer Notes LastModified by Organizat ion Details LastModified Time Tobacco Smoking Status Never Smoker Dona Arias kan, [facility] 02/24/2023 15:53:43 If You Are , What Was Your Level Of Alcohol Consumption Prior To ? Occasional [email or web address] Information not available 02/24/2023 How Many Years [...] Or The Highest Degree You Have Received? [id number] Information not available 02/22/2022 Are There Any [...] Have Difficulty Walking Or Climbing Stairs? No [email or web address] Information not available 02/24/2023 Sex: Unknown Functional Status Question Answer Note LastModified by Organizat ion Details LastModified Time Do you use any illicit or recreational drugs? No Information not available 02/22/2022 What is your level of alcohol consumption? Occasional [email or web address] Information not available 10/04/2023 Are you able to walk independently without assistance or assistive devices? [email or web address] Information not available 02/22/2022 Are you able to care for yourself independently? 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 No [email or web address] Information not available 02/24/2023 What is your exercise level? Moderate Information not available 02/22/2022 Mental Status Question Answer Note LastModified by Organization D etails LastModified Time Do you feel stressed (tense, restless, nervous, or anxious, or unable to sleep at night)? [id number] Information not available 02/22/2022 Family History Relationship [...] Vaccine Type Date Status Note Provider Santino e and Address Organization Details Recorded Time COVID-19, mRNA, LNP-S, PF, courtney-sucrose, 30 mcg/0.3 mL 02/11/2023 completed Liz Quevedo [facility], [facility] 02/24/2023 17:24:57 Past Encounters Encounter ID Performer Location Encounter Start Date Encounter Closed Date Diagnosis/Indication Diagnosis SNOMED-CT Code Diagnosis ICD10 Code Diagnosis IMO Codes Diagnosis Note [id number] Elana Kwong , [facility] [address] [address] 02/22/2022 09:47:52 02/22/2022 10:33:31 Gynecologic examination 70715970 Z01.419 Take Calcium with Vitamin D 1200mg [...] Screen na Dexa Screen na Routine Labs [facility] 10/[address] [facility] ion care management 106474982 Z30.9 [id number] [facility] [address] [address] 04/08/2022 14:17:06 04/08/2022 15:58:51 Urinary symptoms 545035524 R39.9 Medication reviewed & labs sent.will contact if any changes are required.Corby RODRIGUEZ VISIT [id number] Corey Chawla MD [facility] [address] [address] 02/01/2023 13:48:21 02/01/2023 14:16:23 [id number] Myra Leija CNM [facility] [address],[place] [address] 02/01/2023 13:48:46 02/01/2023 15:56:24 Amenorrhea 26835656 N91.2 Venereal d isease screening 455649734 Z11.3 [id number] Corey Chawla MD [facility] [address],[place] [address] 02/24/2023 15:53:28 02/24/2023 16:50:00 screening 970156511 Z36.82 Z3A.12 [id number] Myra Leija [facility] [address],[place] [address] 02/24/2023 15:54:07 02/24/2023 18:07:02 Gestation period, 12 weeks 39782877 Z3A.12 [id number] Myra Leija [facility] [address],[place] [address] 03/24/2023 15:57:55 03/27/2023 13:05:36 Routine care 441764293 Z34.92 [id number] Corey Chawla MD [facility] [address],[place] [address] 04/21/2023 15:54:49 04/21/2023 17:01:00 screening for malformation 566715361 Z36.3 Z3A.20 screening 2437 44662 Z36.3 [id number] Myra Leija [facility] [address],[place] [address] 04/21/2023 15:55:13 04/24/2023 09:47:54 Routine care 479478561 Z34.92 [id number] [facility] [address],[place] [address] 05/19/2023 16:29:07 05/22/2023 05:17:50 Routine care 855180077 Z34.92 [id number] Corey Chawla MD [facility] [address],[place] [address] 05/19/2023 16:29:27 05/19/2023 17:10:00 condition affecting obstetrical care of mother 328400634 O35.8XX0 Z3A.24 [id number] Corey Chawla MD [facility] [address],[place] [address] 06/28/2023 10:25:00 06/28/2023 11:00:21 Suspected abnormality affecting management of mother 6085202516 2969689 O35.8XX0 Z3A.29 [id number] [facility] [address],[place] [address] 06/28/2023 11:03:16 06/28/2023 11:54:36 Routine care 427210312 Z34.92 [id number] Corey Chawla MD [facility] [address],[place] [address] 07/14/2023 15:13:29 07/18/2023 14:55:02 Gestational diabetes mellitus 55794075 O24.410 Pt and here for diet teaching. [...] and pt verbalized understand ing. KVNG unger [id number] Myra Leija CNM [facility] [address],[place] [address] 07/14/2023 16:08:55 07/14/2023 17:11:15 Routine care 248402233 Z34.92 [id number] Corey Chawla MD [facility] [address],[place] [address] 07/31/2023 17:24:54 08/01/2023 10:45:44 Routine care 307384588 Z34.03 [id number] Corey Chawla MD [facility] [address],[place] [address] 07/31/2023 18:14:29 08/01/2023 10:45:18 bradycardia 704302186 O36.8399 [id number] ADAN ASENCIO MD [facility] [address],[place] [address] 08/18/2023 10:57:38 08/18/2023 12:11:43 Gestational diabetes mellitus 21372849 O24.410 Gestation period, 37 weeks 98760613 Z3A.37 [id number] Corey Chawla MD [facility] [address],[place] [address] 08/25/2023 15:24:46 08/28/2023 09:01:47 Gestational diabetes mellitus 27436959 O24.410 Z3A.38 Pt and here for diet [...] and pt verbalized understand ing. KVNG unger [id number] [facility] [address],[place] [address] 08/25/2023 15:25:10 08/28/2023 09:01:31 Routine care 265667512 Z34.92 Breech presentation 6096 002 O32.1XX9 [id number] ADAN ASENCIO MD [facility] [address],[place] [address] 09/11/2023 11:27:44 09/11/2023 12:13:22 Candidiasis of vagina 46360234 B37.31 - reports hx of yeast infections , starting to have some irritation - diflucan sent, call if symptoms are not improved care 63685508 8 Z39.2 S/p c section on . Incision well-heale d without any signs of infection2 . RTC 4wks for post-partu m check [id number] ADAN ASENCIO MD [facility] [address],[place] [address] 09/12/2023 13:57:30 09/13/2023 11:12:30 Mastitis associated with 391897884 O91.23 - exam suspicious for left mastitis- discussed pumping regularly, ice packs and scheduled NSAIDS- patient to call if worsening or not improved in 48 hours [id number] Myra Leija [facility] [address],[place] [address] 10/04/2023 14:00:23 10/05/2023 09:44:33 care 031597264 Z39.2 normal pp visit f/u 6 month wweok to check hormone labs (HL-pCOS) after breastfeed ing [id number] Corey Chawla MD [facility] [address],[place] [address] 02/22/2024 16:30:11 02/22/2024 17:13:34 Urinary symptoms 008821624 R39.9 Patient presents with symptoms of UTI. [...] like to move forward with urology referral. [id number] DARCEI Robertson [facility] [address] [address] 03/18/2024 16:08:24 03/19/2024 10:01:26 Breast lump 61563582 N63.0 order given for bilateral breast u/s with axillaenco uraged to schedulequ estions answeredpr ecautions discussed (notify office with any new symptoms such as redness/fe vers/flu-l jazmyne symptoms) Time spent in visit is a total of 20 mins with at least 50% of visit consisting of counseling and review of plan of care. Axillary lymphadenopathy 928919838 R59.0 [id number] Myra Leija CNM [facility] [address] [address] 04/10/2024 16:09:52 04/10/2024 17:13:12 Gynecologic examination 17169797 Z01.419 Health Concerns Section Related Observation LastModified [...] Cara Blackman 01/30/2023 1 [employer] (POS II) [id number] Cara Blackman [id number] Cara Blackman 04/07/2024 1 [employer] [id number] Katherine Blackman [id number] Cara Blackman Notes Date Note Type Note Provider Name and Address Organization Details Recorded Time text/html Patient presents for evaluation of breast lumps. Reports two small lumps in the left axilla since milk came in, as well as a large area of induration and redness on the medial left breast since yesterday. Denies nausea, vomiting, fevers, or chills. Pumping on normal schedule, no nipple breakdown. ADAN ASENCIO MD [address], [place], [address], [facility] 09/12/2023 18:09:13 4 text/html VisitReported by PatientHPIFor quality, patient reportsprimary c/s(breech). For context, patient reportscomplications of : gdm,complications of labor: none, complications: none,good support from partner/family, andresumed menstrual bleeding no. For associated symptoms, patient reportsno abnormal bleeding,no vaginal discharge,no pelvic pain,laceration well healed,no constipation,no fecal incontinence,no dysuria,no urinary incontinence,no fever,no problems,no mastitis, andnormal mood. For contraception plan, patient reportsdeclines contraception.doing well, exclusively pumpingROS as noted in the HPI Myra Leija CNM [address], [place], [address], [facility] 10/04/2023 17:30:14 5 text/html Patient here with c/o dysuria, strong urine odor, urinary urgency x 2 days.Patient states that she has history of frequent urinary tract infections since 2019, every 3-4 months, most of which have been confirmed with urine culture. Patient denies vaginal symptoms, such as itching, discharge, or vulvar irritation.Patient states that she just finished Dicloxacillin for mastitis. Laila omer, [facility] 02/22/2024 17:27:45 5 text/html 34yo [id number] for evaluation of left breast lumptreated for mastitis in Jan when first noticed lumpno longer experiencing redness/pain/feversfeels as if axilla are enlarged bilaterally at timesshe is exclusively pumping (about 4 times per day) neg pain/rednessneg n/v/fneg flu-like symptoms DARCIE Robertson [address], [place], [address], [facility] 03/19/2024 09:25:04 5 text/html Annual GYNReported by PatientHistoryFor history, patient reportsno gynecologic complaints.Genitourinary symptomsFor urinary symptoms, patient reportsno hematuriaandno incontinence. For vulva, patient reportsno genital lesion. For vagina, patient reportsnormal vaginal discharge. For menstrual cycle, (no cycle, pumping).Breast symptomsFor breast, patient reportsno breast pain,no breast lump, andno nipple discharge.Endocrine symptomsFor sexual complaints, patient reportsno sexual complaints,no pain during intercourse, andnormal libido. For menopausal symptoms, patient reportsno menopausal symptomsandnormal vaginal lubrication.Psychological symptomsFor psychological symptoms, patient reportsno depression,no anxiety, andno pmdd.Preventative measuresFor preventive measures, patient reportsencourage self breast examination,encourage regular exercise, andencourage no tobacco use.doing wellROS as noted in the HPI Myra Leija CNM [address], [place], [address], [facility] 04/10/2024 16:55:17 OBGyn Episode Ob Episode Information Episode Created Date Number of Fetuses Patient Bloodtype Patient rh Status Prepregnancy Weight lbs Domestic Partner Domestic Partner Phone Father Name Soaking Pits Supervisor Status 02/24/19 24 1 O Negative 156 Hammad Blackman CLOSED Fetus Data First Name Last Name Admitted to NICU Weight (g) Sex Living Outcome Pediatric Complications Fetus ID Race Codes Race Delivery Type 3401.94 F [place] [id number] Primary Problems Problem Notes pyelectasis rpt 4 weeks Problem Name Start Date End Date Resolution Snomed Code Not e RhD negative [id number] Rhogam @ 28wks - received 06/29/23 Rubella 47237440 Non-Immune - MMR PP Gestational diabetes mellitus 28991762 BS QID and seri al growth us [...] Date Ultra Sound Latest Days Gestation 0 [email or web address] 02/25/2023 09/08/19 24 0 Pre- Flowsheet Flowsheet Date 02/24/2023 Hill Score Blood Edema Fundus Height Fundus Units Glucose Ketones Leukocytes Nitrite Labor Signs Protein Cervic Dilation Cervic Effacement Cervic Station neg none none trace Type Weight in lbs Pre/Post Dialysis Refused Weight 158.328504257913 BP Diastolic BP Location Tested BP Systolic [...] Weight in lbs Pre/Post Dialysis Refused Weight 161.207536559684 BP Diastolic BP Location Tested BP Systolic BP Type 74 106 Fetus Heart Rate Present A 142 Present Fetus Movement A Yes Comments patient is having some heada ches, little pain, discharge and nausea. reviewed education and precautions f/u 4 weeks anatomy Flowsheet Date 04/21/2023 Hlil Score Blood Edema Fundus Height Fundus Units [...] Weight in lbs Pre/Post Dialysis Refused Weight 163.047607560656 BP Diastolic BP Location Tested BP Systolic [...] Weight in lbs Pre/Post Dialysis Refused Weight 168.230310711862 BP Diastolic BP Location Tested BP Systolic BP Type 76 117 Fetus Heart Rate Present Fetus Movement A Yes Comments Patient states that having s ome back pain, discussed sliver handler, labor, us reviewed efw 67% pyelectasis still [...] Weight in lbs Pre/Post Dialysis Refused Weight 171.922123986672 BP Diastolic BP Location Tested BP Systolic BP Type 73 111 Fetus Heart Rate Present Fetus Movement A Yes Comments Patient states that her hear t rate is elevated sometimes. bilateral pyelectasis resolved, breech, efw 71%, has a sliver handler, mahendra , planning low intervention, unmedicated , [...] Weight in lbs Pre/Post Dialysis Refused Weight 170.366697649391 BP Diastolic BP Location Tested BP Systolic [...] Weight in lbs Pre/Post Dialysis Refused Weight 169.401171380847 BP Diastolic BP Location Tested BP Systolic BP Type 74 112 Fetus Heart Rate Present Fetus Movement Comments Flowsheet Date 07/31/2023 Hill Score Blood Edema Fundus Height Fundus Units Glucose Ketones Leukocytes Nitrite Labor Signs Protein Cervic Dilation Cervic Effacement Cervic Station neg none none trace Type Weight in lbs Pre/Post Dialysis Refused Weight 169.111021542541 BP Diastolic BP Location Tested BP Systolic [...] Weight in lbs Pre/Post Dialysis Refused Weight 165.881753024866 BP Diastolic BP Location Tested BP Systolic [...] Weight in lbs Pre/Post Dialysis Refused Weight 165.182196726113 BP Diastolic BP Location Tested BP Systolic [...] At Estimated Date of Delivery false Thalassemia (Venezuelan, Burundian, Mediterranean, Or Background): MCV < 80 false Neural Tube Defect (Meningom yelocele, Spina Bifida, Or Anencephaly) false Congenital Heart Defect false Down Syndrome false Duc-Sachs (eg, Roman Catholic, Cajun, [place]-Finnish) f alse Flavio Disease false Sickle Cell Disease Or Trait () false Hemophilia Or Other Blood Disorders false Muscular Dystrophy false Cystic Fibrosis false Galax's Chorea false Intellectual Disability/Autism false If Yes, [...]
--- OUTSIDE RECORDS SUMMARY | 2024-12-11 01:33 | XMS_ITS | Clinical Summary ---
Author Organization [facility] Address [address] [place] [address] Care Team Providers Care Foot Orthopedist Name Role Phone Anila Springer MD Primary Care Provider [phone]- [phone] Elana Kwong JOURNEYMAN WIREMAN Unavailable +1- [phone] Allergies No known active allergies Medications nitrofurantoin monohydrate (MACROBID) 100 mg capsule TAKE 1 CAPSULE BY MOUTH EVERY 12 HOURS FOR 7 DAYS 04/08/2022 Active Kariva, 28, 0.15-0.02 mgx21 /0.01 mg x 5 per tablet Take 1 tablet by mouth daily 05/23/2022 Active Active Problems Problem Noted Date Diagnosed Date Rectal bleeding 05/27/2022 Overview (05/27/2022): Added automatically from request for surgery [id number] Family history of colon cancer 05/27/2022 Overview (05/27/2022): Added automatically from request for surgery [id number] Iron deficiency anemia 05/27/2022 Overview (05/27/2022): Added automatically from request for surgery [id number] Chronic diarrhea 05/27/2022 Assessment & Plan (05/27/2022 1:55 PM CDT): Lower abdominal cramping with urgency and diarrhea 1-5 episodes of watery stool after eating usually about once a week, when traveling occurs more due to eating unpredictably. Saw staff psychologist and found no specific food triggers In [facility] a month ago couldn't leave restaurant because [...] 05/10/2022 Assessment & Plan (01/28/2022 10:56 AM PRECISION LENS GRINDER): Acute problem, present times 1 week Physical [...] 05/11/19 Assessment & Plan (04/11/2019 4:36 PM PRECISION LENS GRINDER): Patient has small non-thrombosed hemorrhoid noted on [...] on file Legal Sex Female 11:13 AM PRECISION LENS GRINDER Gender Identity Not on file Sexual Orientation [...] Additional history exists Covid-19 Vaccine ( season) 2024 02/03/2021, 05/31/2020, 05/10/2020 Influenza Vaccine (#1) 2024 [...] REFLEX TO GENOTYPING Routine 02/11/2021 9:14 AM PRECISION LENS GRINDER from Last 3 Months or Most Recently Relevant to Health Maintenance Results * Pap and High Risk HPV, reflex to Genotyping (02/11/2021 9:14 AM PRECISION LENS GRINDER) Pap test 02/11/2021 9:14 AM PRECISION LENS GRINDER 02/11/2021 9:14 AM PRECISION LENS GRINDER Narrative 02/15/2021 4:46 PM PRECISION LENS GRINDER [facility] Department of Pathology [address] [place] [address] Final Report Note to Patients: This report [...] the details. Patient Name: SADIA BLACKMAN Address: [address] [place] [address] Gender: F : 1990 (Age: 30) Service: Laboratory Location: Lab [facility] #: [id number] Patient Type: Ref Lab Taken: 02/11/2021 Received: [...] determined by the Surgical Pathology Department at [facility] as part of an ongoing water quality manager program and in compliance with federally mandated [...] characteristics determined by the Surgical Pathology Department [facility]. It has not been cleared or approved by the [place]. [place]. Food and Drug Administration. Diane Allen NP LAB CYTOLOGY ORDERABLES F inal Result from Last 3 Months or Most Recently Relevant to Health Maintenance Insurance [facility] ACCESS CHOICE [facility] [facility] HMO Advance Directives For more information, please contact: [phone] Documents on File Type Date Recorded Patient Eyelet Row Marker Expl anation ADVANCE DIRECTIVE 05/10/2022 REVISED PO WER OF DUMPSTER DRIVER-MEDICAL ADVANCE DIRECTIVE 04/26/2021 3:54 PM POWER OF DUMPSTER DRIVER-MEDICAL ADVANCE DIRECTIVE 01/05/2015 POWER OF A TTORNEY-MEDICAL * Full Code (Latest Code Status on File) Date Activated Date Inactivated Comments 05/30/2022 9:25 AM 05/30/2022 3:11 PM * Full Code Date Activated Date Inactivated Comments 05/30/2022 9:25 AM 05/30/2022 9:25 AM Care Teams Foot Orthopedist Relationship Specialty Start Date End Date Anila Springer MD PCP - General 05/13/16 Elana Kwong NP Nurse Practitioner Nurse Practitioner 05/10/22
[2024-12-11 10:22] VITALS: BP 103/75; PULSE 77; RESP 18; TEMP 36.1; O2SAT 98; BMI 23.2
[2024-12-11] MEDS: LACTATED RINGERS 1,000 ML 150 ML IV CONT (10:37)
[2024-12-11] MEDS: SIMETHICONE ORAL SUSPENSION 20 MG/0.3 ML 30 ML BOTTLE 1.8 ML PO (10:39)
--- NOTE | 2024-12-11 11:26 | PM.IMHP ---
H&P: HPI History of Present Illness Date/Time: 12/11/24 11:26 Chief Complaint: Diarrhea-rectal bleeding-dyspepsia Narrative: Patient referred for EGD and colonoscopy. She has a longstanding history of IBS-diarrhea, and had a recent episode of severe diarrhea with rectal bleeding, which subsided after receiving antibiotics. In addition patient complains of intermittent epigastric pain/dyspepsia. Review of Systems Review of Systems: All systems reviewed & are unremarkable except as noted in HPI and below PMFSH Past Medical History Medical History Post-op pain delivery indicated due to breech presentation Gestational diabetes Surgical History Surgical History H/O: H/O colonoscopy Family History Family History Grandparent Diabetes mellitus Heart problem Other Patient denies significant medical history Social History Social History Smoking status: Never smoker Substance use: never Do You Feel Safe in your Home?: Yes Lack of Transportation: No Lack of Food: Never True Current Housing: I Have Housing Concerned About Future Housing: No Difficulty Paying Gas/Electric Bills: No Difficulty Paying for Meds: No Currently Unemployed: No Education: Master's Degree or Higher Difficulty w/ Childcare or Family Care: No Living arrangements: with family Spiritual care concerns: No Meds Home Medications and Allergies Home Medications ?Medication ?Instructions ?Recorded ?Confirmed ?Type Juan M Inosotol 2,000 mg BYMOUTH DAILY 05/22/24 11/29/24 History Allergies Allergy/AdvReac Type Severity Reaction Status Date / Time No Known Allergies Allergy Verified 12/11/24 10:21 Vital Signs Vital Signs - 24 hr 12/11/24 10:22 Temperature 97 F L Pulse Rate 77 Respiratory Rate 18 Blood Pressure 103/75 Pulse Oximetry 98 Oxygen Delivery Room Air Exam Const: General: cooperative and healthy appearing Resp: Effort & Inspection: normal respiratory effort and able to speak in complete sentences Auscultation: clear to auscultation bilaterally Cardio: Rate: regular rate Rhythm: regular rhythm GI: Inspection: normal to inspection GI Palp: No No hepatosplenomegaly present Auscultation: normal bowel sounds Rectal Exam: deferred Skin: General skin exam: normal color Psych: Appearance: grossly normal Mental Status: mental status grossly normal Assessment and Plan Assessment and plan (1) Diarrhea: Qualifiers: Diarrhea type: presumed infectious Qualified Code(s): R19.7 - Diarrhea, unspecified Code(s): R19.7 - Diarrhea, unspecified Status: Acute Assessment and Plan: The patient is deemed a good candidate for the procedure. Consent signed. Will proceed. (2) Generalized abdominal pain: Code(s): R10.84 - Generalized abdominal pain Status: Acute (3) Hematochezia: Code(s): K92.1 - Melena Status: Acute
--- NOTE | 2024-12-11 11:26 | WPDANESEPPF ---
Anes - Initial Pre Proc Eval Procedure: Operation Date: 12/11/24 11:30 Proposed Procedures p EGD & Diagnostic Colonoscopy - Silas Santos MD Date/Time: 12/11/24 11:26 Surgeon: Silas Santos MD Pre Op Diagnosis: Noninfective gastroenteritis and colitis, Abd pain Patient Data Age: 34 Gender: F Height: 1.65 m Weight: 63.4 kg Last Vital Signs Temp 97 F L 12/11/24 10:22 Pulse 77 12/11/24 10:22 Resp 18 12/11/24 10:22 BP 103/75 12/11/24 10:22 Pulse Ox 98 12/11/24 10:22 O2 Del Method Room Air 12/11/24 10:22 Allergies Allergy/AdvReac Type Severity Reaction Status Date / Time No Known Allergies Allergy Verified 12/11/24 10:21 Home Medications ?Medication ?Instructions ?Recorded ?Confirmed ?Type Juan M Inosotol 2,000 mg BYMOUTH DAILY 05/22/24 11/29/24 History Patient hx anesthesia problems: none Family hx anesthesia problems: none Results Review: All pre-operative results and documents have been reviewed as part of the pre-operative evaluation. [facility] Past Medical History Medical History Post-op pain delivery indicated due to breech presentation Gestational diabetes Surgical History Surgical History H/O: H/O colonoscopy Family History Family History Grandparent Diabetes mellitus Heart problem Other Patient denies significant medical history Social History Social History Smoking status: Never smoker Substance use: never Do You Feel Safe in your Home?: Yes Lack of Transportation: No Lack of Food: Never True Current Housing: I Have Housing Concerned About Future Housing: No Difficulty Paying Gas/Electric Bills: No Difficulty Paying for Meds: No Currently Unemployed: No Education: Master's Degree or Higher Difficulty w/ Childcare or Family Care: No Living arrangements: with family Spiritual care concerns: No Anes - Eval Final PreProcedure Day of Procedure 12/11/24 11:26 Patient weight: normal Lungs: normal air movement Airway: Mallampati scale Neurological: alert and oriented Last oral intake: >/= 8 hours ASA classification: I Emergent: no Anesthetic plan: proceed Anesthesia type and monitoring: general GIVS and standard monitoring Results Review: All pre-operative results and documents have been reviewed as part of the pre-operative evaluation. Healthy, active, no cp or sob. GI issues, hx of colonoscsopy for r/o Inflam bowel, now for further eval. Informed Consent: The patient's anesthetic plan and its attendant risks and benefits were discussed with the patient/family/POA. Questions were solicited and answers provided to the satisfaction of the patient/family/POA.
--- NOTE | 2024-12-11 11:50 | S_PTH ---
PATIENT: Cara Blackman LOC: [facility] U#:[id number] AGE/SX: 34/F ROOM: RE12/11/[address]: Silas Santos MD : 1990 BED: DIS: 12/11/2024 SPEC #: [id number] RECD: 12/11/24 13:30 STATUS: DANIEL REDeonte #: [id number] CHERISE: 12/11/24 11:[address]: Silas Santos DEPT: [facility] Surgical RECD BY: Apple Castellanos ENTERED: 12/11/24 13:30 SP TYPE: Surgical OTHR DR: Christy Rhoades APRN Tissues: A - Gastric Biopsy B - Gastric Biopsy C - Colon Biopsy D - Colon Biopsy Procedures: Hematoxylin and Eosin Stain Gross and Microscopic Level 4
--- NOTE | 2024-12-11 11:53 | SUR.OPER ---
EGD: start 11:38, End 11:42 Colonoscopy: start 11:47, end 11:57
[2024-12-11 12:02] VITALS: BP 92/58; PULSE 73; RESP 19; O2SAT 99
[2024-12-11 12:12] VITALS: BP 99/70; PULSE 63; RESP 17; O2SAT 100
[2024-12-11 12:14] LABS: BEDSIDEPREGUCG Negative (Negative)
[2024-12-11 12:22] VITALS: BP 93/62; PULSE 57; RESP 22; O2SAT 98
== END 2024-12-11 12:32 | disposition home or self-care (01) ==
PROVIDERS: PCP Nurse Practitioner Family; Visit Provider Internal Medicine Gastroenterology
PROC: 0DJ08ZZ Inspection of Upper Intestinal Tract, Via Natural or Artificial Opening Endoscopic (ICD-10-PCS; CPT 45378; principal; 2024-12-11 11:30)
DX: K58.0 Irritable bowel syndrome with diarrhea (principal); Z98.890 Other specified postprocedural states; Z82.49 Family history of ischemic heart disease and other diseases of the circulatory system
CPT/HCPCS: 43239; 45380; 88305; J2003; J2704; J7120

== ENCOUNTER 2024-12-24 15:45 | Outpatient (RCR) | payer OTHER, SELFPAY ==
--- NOTE | 2024-10-23 15:20 | OPREHPOC ---
Outpatient Therapy Plan of Care This is a Multidisciplinary Plan of Care that may contain components documented by all disciplines (PT, OT, and ST.) PT Problem 1 PT Problem #1 Knowledge Deficit PT Goal 1 Goal / Goal Update 1. Patient will perform independent HEP Target Visit 2 PT Problem 2 PT Problem #2 Pain PT Goal 1 Goal / Goal Update 1. Patient will report no pain with urination for 2 weeks 2. Patient will report no pain with intercourse or tampon use for 2 weeks Target Visit 4 PT Problem 3 PT Problem #3 Impaired Functional ADLs PT Goal 1 Goal / Goal Update 1. Patient will no be limited in any functional activities due to pelvic or urinary pain Target Visit 4 PT Problem 4 PT Problem #4 Impaired Strength PT Goal 1 Goal / Goal Update 1. Normal resting pelvic floor muscle tone Target Visit 4
--- NOTE | 2024-10-23 15:21 | PTOPEVAL1 ---
Assessment and note entered by Becca Cervantes DPT Evaluation Information Assessment Status Evaluation Diagnosis r39.9, n32.89 ICD-10 Condition Codes (PT) Pelvic and perineal pain R10.2 Subjective Information Pt reports a history of chronic UTIs for 6 years. Averaging 1-3 UTIs per year. Cultures do come back positive every time. Voids 5-6 times a day, usually none at night. When she does have a UTI, 10+ times per day. Can hold urge to void as long as needed. Highest pain with urination 6/10 when she does have a UTI, lowest 0/10. Reports she struggles to get urine out all the time and feels like she has to push. Stress incontinence with jumping, is happening maybe once a twice or year. BM daily, has also been diagnosed with IBS-D. Getting colonoscopy next month. Does have a history of pelvic pain with intercourse, some with tampon use. Can tolerate tampon use. Pain seems positional and deep. Pt has been 1 time, C- section in 2023. No other [employer] history. Patient goal: avoid getting UTIs. Pt reports when her symptoms get bad it can be debilitating and she has trouble doing her typical activities. Returns to urology in a few months. Reported Pain Level Pain Score 0: Self Report Assessment PT Clinical Summary The patient is presenting to skilled therapy with several years of chronic UTIs as well as a history of pelvic pain. She presents with mild increased pelvic floor muscle tone which is contributing to her pain and urinary symptoms, and she will benefit from therapy to address these impairments in order to reduce pain and restore full function. Plan of Care Interventions Electrical Stimulation,Gait Training,Hot Pack/Cold Pack,Manual Therapy,Neuro Re-education,Patient/ Caregiver Education,Therapeutic Activities, Therapeutic Exercise PT Services Indicated Yes Treatment Frequency and 1 time a week for 4 visits Duration These treatments will address the objective and functional deficits as defined above. The patient will be advanced safely and appropriately in order for the patient to progress towards his/her prior level of function. Additional exercises will be introduced and as well as a comprehensive home exercise program upon discharge, if needed, ?to ensure carryover of functional gains achieved in the clinic. This treatment plan has been reviewed and agreement upon by the patient.
--- NOTE | 2024-11-15 14:02 | OPREHPOC ---
Outpatient Therapy Plan of Care This is a Multidisciplinary Plan of Care that may contain components documented by all disciplines (PT, OT, and ST.) PT Problem 1 PT Problem #1 Knowledge Deficit PT Goal 1 Goal / Goal Update 1. Patient will perform independent HEP Target Visit 2 Progress Met PT Problem 2 PT Problem #2 Pain PT Goal 1 Goal / Goal Update 1. Patient will report no pain with urination for 2 weeks 2. Patient will report no pain with intercourse or tampon use for 2 weeks update 11/15/24 1. pain decreased to 2/10 highest 2. met Target Visit 6 Progress Partially Met PT Problem 3 PT Problem #3 Impaired Functional ADLs PT Goal 1 Goal / Goal Update 1. Patient will no be limited in any functional activities due to pelvic or urinary pain update 11/15/24 1. continue goal Target Visit 4 Progress Partially Met PT Problem 4 PT Problem #4 Impaired Strength PT Goal 1 Goal / Goal Update 1. Normal resting pelvic floor muscle tone update 11/15/24 1. no change Target Visit 4 Progress Not Met
--- NOTE | 2024-11-15 14:02 | PTOPPROG ---
Assessment and note entered by Becca Cervantes DPT Evaluation Information Assessment Status Progress Diagnosis r39.9, n32.89 ICD-10 Condition Codes (PT) Pelvic and perineal pain R10.2 Subjective Information Pt returns with bladder diary which shows she is voiding about 4-5 times a day and sometimes going 5 hours in between. Pt reports using the stool and breathing techniques are helping with her ability to void as well. Very slight pain with urination in the last week 03/25. Assessment PT Clinical Summary The patient has made good progress so far in therapy. She reports decreased pain overall with urination to 2/10 highest and improved ability to initiate urine stream when using down training and positioning techniques. She continues to display mild increased pelvic floor muscle tone and tenderness with palpation and will benefit from further therapy to fully address pain, normalize urinary frequency, and restore full function. Plan of Care Interventions Electrical Stimulation,Gait Training,Hot Pack/Cold Pack,Manual Therapy,Neuro Re-education,Patient/ Caregiver Education,Therapeutic Activities, Therapeutic Exercise PT Services Indicated Yes Treatment Frequency and 1 visit every 2-3 weeks x 2 more visits Duration These treatments will address the objective and functional deficits as defined above. The patient will be advanced safely and appropriately in order for the patient to progress towards his/her prior level of function. Additional exercises will be introduced and as well as a comprehensive home exercise program upon discharge, if needed, ?to ensure carryover of functional gains achieved in the clinic. This treatment plan has been reviewed and agreement upon by the patient.
--- NOTE | 2024-12-24 16:25 | OPREHPOC ---
Outpatient Therapy Plan of Care This is a Multidisciplinary Plan of Care that may contain components documented by all disciplines (PT, OT, and ST.) PT Problem 1 PT Problem #1 Knowledge Deficit PT Goal 1 Goal / Goal Update 1. Patient will perform independent HEP Target Visit 2 Progress Met PT Problem 2 PT Problem #2 Pain PT Goal 1 Goal / Goal Update 1. Patient will report no pain with urination for 2 weeks 2. Patient will report no pain with intercourse or tampon use for 2 weeks update 11/15/24 1. pain decreased to / highest 2. met update 12/24/24 1. met except for while traveling Target Visit 6 Progress Partially Met PT Problem 3 PT Problem #3 Impaired Functional ADLs PT Goal 1 Goal / Goal Update 1. Patient will no be limited in any functional activities due to pelvic or urinary pain update 11/15/24 1. continue goal update 12/24/24 Target Visit 6 Progress Met PT Problem 4 PT Problem #4 Impaired Strength PT Goal 1 Goal / Goal Update 1. Normal resting pelvic floor muscle tone update 11/15/24 1. no change Target Visit 4 Progress Not Met
--- NOTE | 2024-12-24 16:25 | PTOPPROGNS ---
Assessment and note entered by Becca Cervantes DPT Evaluation Information Assessment Status Progress Diagnosis r39.9, n32.89 ICD-10 Condition Codes (PT) Pelvic and perineal pain R10.2 Subjective Information Pt goes back to urology again next week and is still pending results from her more in depth urine culture. Pt reports while traveling over the weekend she thought a UTI was coming on but it has since subsided. No pain with urination other than while traveling. Continues to report success with using squatty potty at home and relaxing to urinate. Assessment PT Clinical Summary The patient has continued to make good progress in therapy at this time. She reports no pain with urination recently except while traveling but that her pain did not fitter and turner to be a UTI. Due to her progress and overall independence with HEP, plan to hold therapy pending discharge at this time. Plan of Care Interventions Electrical Stimulation,Gait Training,Hot Pack/Cold Pack,Manual Therapy,Neuro Re-education,Patient/ Caregiver Education,Therapeutic Activities, Therapeutic Exercise PT Services Indicated No Treatment Frequency and patient to call if issues come up over the next Duration month, otherwise will discharge this case These treatments will address the objective and functional deficits as defined above. The patient will be advanced safely and appropriately in order for the patient to progress towards his/her prior level of function. Additional exercises will be introduced and as well as a comprehensive home exercise program upon discharge, if needed, ?to ensure carryover of functional gains achieved in the clinic. This treatment plan has been reviewed and agreement upon by the patient.
== END 2025-01-21 23:59 | disposition home or self-care (01) ==
LOC: ANHPT 15:45
PROVIDERS: PCP Nurse Practitioner Family; Visit Provider Physician Assistant
DX: N32.89 Other specified disorders of bladder (principal); R39.9 Unspecified symptoms and signs involving the genitourinary system
CPT/HCPCS: 97110; 97140; 97162; 97530